=== PATIENT | female | born 1990 | race Caucasian/White ===

== ENCOUNTER 2019-07-01 13:45 | Outpatient (RCR) | payer OTHER, MEDICAID, SELFPAY ==
--- NOTE | 2019-04-22 12:54 | PT.OPPOC ---
Addendum entered and electronically signed by Racquel Hernandez PT 01/19/20 10:25: POC being resent Original Note: Current Diagnoses Carpal tunnel syndrome, bilateral upper limbs (04/22/19) Abnormal posture (04/22/19) Provider Visit Care Team Role Provider Type Zee Parker DO Attending Provider Physician Primary Care Provider Specialty: [facility] Address: [address] [place] [address], [facility] Email: [email or web address] Plan Of Care PT-OP-T Assessment and Plan Start: 04/22/19 12:54 Freq: Status: Active Protocol: Document 04/22/19 12:54 ANTWAN (Rec: 04/27/19 16:34 SAK [id number]) Physical Therapy Assessment Rehab Potential Rehabilitation Potential Good Evaluation Complexity Number of Personal Factors/Comorbidities 1-2 Number of Body Systems Impaired 3 Clinical Presentation at Evaluation Evolving Impairments Impairments Activity Tolerance Pain Posture ROM Soft Tissue Mobility Strength Other Concerns Barriers to Rehabilitation repetitive activities required by work Goals 3 Impairment activity tolerance Post Closing Specialist Goal (LTG) Patient will be able to complete all usual activities without symptoms in wrists LTG Duration 8 wks 2 Impairment Decreased ROM and strength bilateral wrists, postural impairment Short Term Goal (STG) Instruct in HEP STG Duration 2 wks Post Closing Specialist Goal (LTG) Patient independent and compliant with HEP to address ROM and strength deficits and postural dysfunction LTG Duration 8 wks 1 Impairment pain, numbness, and tingling bilateral wrists Short Term Goal (STG) Decrease symptoms by 50% STG Duration 4 wks Assisted Goal (LTG) Eliminate symptoms LTG Duration 8 wks Assessment Summary Assessment Patient presents with signs and symptoms consistent with carpal tunnel syndrome in bilateral wrists. She has not used ice or heat or obtained splints as recommended by her physician. She will benefit from skilled PT to treat the carpal tunnel and help her return to her usual activities without symptoms. This will include the use of splints which she has agreed to obtain as well as modalities, therapeutic exercises, patient education, manual therapy. Physical Therapy Plan Frequency and Duration Frequency of Treatment 2x/Week Duration of Treatment 8 Plan of Care Start Date 04/22/19 Plan of Care End Date 06/23/19 Therapeutic Interventions Therapeutic Interventions Home Exercise Program Manual Therapy Patient/Caregiver Education Self-Care/Home Management Soft Tissue Mobilization Taping Therapeutic Exercises Modalities Cold Pack/Ice Massage Hot Packs Paraffin Bath Ultrasound Next Visit Focus/Plan Next Note Type Treatment Note Next Visit Plan Start session with paraffin. Review HEP, manual treatment to forearm flexors, nerve gliding and flossing, consider kinesiotape. End with ice. Plan of Care Dates Plan of Care Start Date 04/22/19 Plan of Care End Date 06/23/19 Please Sign and Return: I have reviewed this Plan of Care and certify that the skilled therapy services above are required to meet the patient?s needs. Physician Signature Date Printed Name and Credentials Clinical Instructor Signature Printed Name and Credentials
--- NOTE | 2019-04-22 12:54 | PT.OIE ---
Current Diagnoses Carpal tunnel syndrome, bilateral upper limbs (04/22/19) Abnormal posture (04/22/19) Provider Visit Care Team Role Provider Type Zee Parker DO Attending Provider Physician Primary Care Provider Specialty: [facility] Address: [address] [place] [address], [id number] Email: [email or web address] Physical Therapy Initial Evaluation PT-OP-A Visit Information Start: 04/22/19 12:54 Freq: Status: Active Protocol: Document 04/22/19 12:54 SAK (Rec: 04/22/19 13:51 SAK [id number]) Out-Patient Physical Therapy Visit Information Visit Information Visit Type Initial Evaluation Visit Start Time 13:00 Visit Number 1 Evaluation Information Evaluation Date 04/22/19 PT-OP-B Current Condition Start: 04/22/19 12:54 Freq: Status: Active Protocol: Document 04/22/19 12:54 SAK (Rec: 04/22/19 13:51 SAK [id number]) Current Condition History of Current Condition Onset Date 3-4 yrs ago Current Complaints function-limiting pain, numbness, and tingling bilateral wrists. History of Current Condition gradual onset of numbness and tingling with repetitive use of hands, and wakes up about 50% of the time with hand numbness (sleeps in position with hands and wrists flexed). 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 Slight motor deficits ( weakness), mostly sensory symptoms with numbness and tingling. Has modified her activity, stopping an activity when she feels symptoms. Has not used ice or heat. Has not obtained splints as recommended. Prior Treatments and Tests EMG 6 wks ago; surgery recommended but patient declined at time at least until establishes care with physician. Treatment Goals Patient/Caregiver Goals Eliminate symptoms and return to usual activities without restriction. Prior Functional Status Baseline Function- ADL's Independent Baseline Function- Mobility Independent Baseline Function- Work/School limited by symptoms Baseline Function- Recreation/Hobbies limited by symptoms Baseline Function- Other unlimited activity with no symptoms Current Functional Impairments (Reported) Functional Limitations- ADL's frequent numbness and tingling Functional Limitations- Work/School Has to frequently stop activity when feels symptoms Functional Limitations- Recreation/ Has to frequently stop Hobbies activity when feels symptoms Personal Factors Other Personal Factors That May Effect sleeping in position, Therapy/Recovery wrists and hands flexed PT-OP-C Subjective Start: 04/22/19 12:54 Freq: Status: Active Protocol: Document 04/22/19 12:54 SAK (Rec: 04/23/19 08:45 SAK [id number]) Patient Questionnaires Quick Dash- Upper Extremity Quick Dash UE Score 22% OP-PT Pain Assessment Pain Assessment Grid Paper Pain Assessment Grid Completed Yes Location bilateral wrists Intensity 2 Description Aching Pressure Radiating Throbbing Tingling Frequency Frequent Pain Aggravating Factors Activity Pain Alleviating Factors Inactivity Home Pain Medication Use Pain Medications Used No PT-OP-F Manual Assessment Start: 04/22/19 12:54 Freq: Status: Active Protocol: Document 04/22/19 12:54 SAK (Rec: 04/23/19 08:45 SAK [id number]) Manual Assessments Soft Tissue Assessment Soft Tissue Mobility Assessment palpable muscle tightness in forearm flexor musculature Joint Mobility Assessment Joint Mobility Assessment WNL bilateral wrists PT-OP-H Neuro Start: 04/22/19 12:54 Freq: Status: Active Protocol: Document 04/22/19 12:54 SAK (Rec: 04/23/19 08:45 SAK [id number]) Sensation Evaluation Gross Sensation Gross Sensation Left UE Impaired Right UE Impaired Sensation Description Numbness Tingling Location Details Wrist Light Touch Intact/Normal Sharp/Dull Intact/Normal Proprioception (Position) Intact/Normal Tactile Localization Intact/Normal Comments Summary Comments Not experiencing N/T at time of evaluation PT-OP-J Posture/Palpation/Skin Start: 04/22/19 12:54 Freq: Status: Active Protocol: Document 04/22/19 12:54 SAK (Rec: 04/23/19 08:45 SAK [id number]) Posture Evaluation Position Standing Head/C-Spine Posture Forward Head T-Spine Posture Increased Kyphosis Shoulder Posture (L) Rounded (R) Rounded Scapula Posture (L) Protracted (R) Protracted Arm Posture (L) Internally Rotated (R) Internally Rotated Palpation Assessment Location colette forearms Palpation Findings Soft Tissue Tightness PT-OP-K Range of Motion Start: 04/22/19 12:54 Freq: Status: Active Protocol: Document 04/22/19 12:54 [facility] (Rec: 04/23/19 08:45 [facility] [id number]) Cervical Spine Range of Motion Cervical Spine Active Testing Position Sitting Comments WNL colette Shoulder Goniometric Range of Motion Shoulder colette shoulders Shoulder ROM WFL Yes Testing Position Sitting Shoulder ROM Limitations Comments WNL except limitations in horizontal abduction with patient reporting muscle tightness and nerve tension symptoms Elbow/Forearm Range of Motion Elbow/Forearm colette Elbow/Forearm ROM WFL Yes Elbow/Forearm ROM Limitations Comments WNL Wrist Goniometric Range of Motion Wrist Left Flexion Active (degrees) 90 Extension Active (degrees) 60 Extension Passive (degrees) 65 Right Flexion Active (degrees) 85 Extension Active (degrees) 65 Extension Passive (degrees) 70 ROM Limitations Wrist Limitations of Range of Motion Soft Tissue Tightness Pain Finger Goniometric Range of Motion Finger ROM Limitations Comments finger ROM WNL Thumb Goniometric Range of Motion Thumb ROM Limitations Comments thumb ROM WNL PT-OP-L Special Tests Start: 04/22/19 12:54 Freq: Status: Active Protocol: Document 04/22/19 12:54 [facility] (Rec: 04/23/19 08:45 [facility] [id number]) Special Tests Cervical Spine Special Tests Foraminal Compression Test Results negative colette Neural Special Tests- Upper Body Median Nerve Tension Test Results positive nerve tension signs bilaterally PT-OP-M Strength Start: 04/22/19 12:54 Freq: Status: Active Protocol: Document 04/22/19 12:54 [facility] (Rec: 04/23/19 08:45 [facility] [id number]) Shoulder Strength Shoulder Manual Muscle Testing colette Reason Not Measured WFL Elbow/Forearm Strength Elbow and Forearm Manual Muscle Testing colette Reason Not Measured WFL Wrist Strength Wrist Manual Muscle Testing colette Flexion (C7) 4 Good Extension (C6) 4 Good PT-OP-Q Treatments Start: 04/22/19 12:54 Freq: Status: Active Protocol: Document 04/22/19 12:54 [facility] (Rec: 04/27/19 16:34 [facility] [id number]) Self-Care/Home Management Treatment Education Patient Education Home Exercise Program Pain Management Other Education Issued written instructions Instructed to obtain wrist splints as recommended by physician Instructed in use of ice at home PT-OP-R Modalities Start: 04/22/19 12:54 Freq: Status: Active Protocol: Document 04/22/19 12:54 ANTWAN (Rec: 04/27/19 16:34 [facility] [id number]) Hot Pack/Cold Pack Treatment Cold Pack Location bilateral wrists Patient Position Sitting Treatment Duration (minutes) 10 Patient Tolerance Good PT-OP-T Assessment and Plan Start: 04/22/19 12:54 Freq: Status: Active Protocol: Document 04/22/19 12:54 ANTWAN (Rec: 04/27/19 16:34 [facility] [id number]) Physical Therapy Assessment Rehab Potential Rehabilitation Potential Good Evaluation Complexity Number of Personal Factors/Comorbidities 1-2 Number of Body Systems Impaired 3 Clinical Presentation at Evaluation Evolving Impairments Impairments Activity Tolerance Pain Posture ROM Soft Tissue Mobility Strength Other Concerns Barriers to Rehabilitation repetitive activities required by work Goals 3 Impairment activity tolerance Data Consultant Goal (LTG) Patient will be able to complete all usual activities without symptoms in wrists LTG Duration 8 wks 2 Impairment Decreased ROM and strength bilateral wrists, postural impairment Short Term Goal (STG) Instruct in HEP STG Duration 2 wks Half-Way Goal (LTG) Patient independent and compliant with HEP to address ROM and strength deficits and postural dysfunction LTG Duration 8 wks 1 Impairment pain, numbness, and tingling bilateral wrists Short Term Goal (STG) Decrease symptoms by 50% STG Duration 4 wks Data Consultant Goal (LTG) Eliminate symptoms LTG Duration 8 wks Assessment Summary Assessment Patient presents with signs and symptoms consistent with carpal tunnel syndrome in bilateral wrists. She has not used ice or heat or obtained splints as recommended by her physician. She will benefit from skilled PT to treat the carpal tunnel and help her return to her usual activities without symptoms. This will include the use of splints which she has agreed to obtain as well as modalities, therapeutic exercises, patient education, manual therapy. Physical Therapy Plan Frequency and Duration Frequency of Treatment 2x/Week Duration of Treatment 8 Plan of Care Start Date 04/22/19 Plan of Care End Date 06/23/19 Therapeutic Interventions Therapeutic Interventions Home Exercise Program Manual Therapy Patient/Caregiver Education Self-Care/Home Management Soft Tissue Mobilization Taping Therapeutic Exercises Modalities Cold Pack/Ice Massage Hot Packs Paraffin Bath Ultrasound Next Visit Focus/Plan Next Note Type Treatment Note Next Visit Plan Start session with paraffin. Review HEP, manual treatment to forearm flexors, nerve gliding and flossing, consider kinesiotape. End with ice.
--- NOTE | 2019-05-20 15:06 | PT.OTN ---
Current Diagnoses Carpal tunnel syndrome, bilateral upper limbs (05/20/19) Abnormal posture (05/20/19) Physical Therapy Treatment Note PT-OP-A Visit Information Start: 04/22/19 12:54 Freq: Status: Active Protocol: Document 05/20/19 11:15 GGD (Rec: 05/20/19 13:54 GGD [id number]) Out-Patient Physical Therapy Visit Information Visit Information Visit Type Treatment Note Visit Start Time 11:15 Visit Stop Time 12:05 Total Visit Minutes 50 Visit Number 2 Number of HOME APPLIANCE TECHNICIAN Visits 1 Evaluation Information Evaluation Date 04/22/19 PT-OP-B Current Condition Start: 04/22/19 12:54 Freq: Status: Active Protocol: Document 04/22/19 12:54 SAK (Rec: 04/22/19 13:51 SAK [id number]) Current Condition History of Current Condition Onset Date 3-4 yrs ago Current Complaints function-limiting pain, numbness, and tingling bilateral wrists. History of Current Condition gradual onset of numbness and tingling with repetitive use of hands, and wakes up about 50% of the time with hand numbness (sleeps in position with hands and wrists flexed). 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 Slight motor deficits ( weakness), mostly sensory symptoms with numbness and tingling. Has modified her activity, stopping an activity when she feels symptoms. Has not used ice or heat. Has not obtained splints as recommended. Prior Treatments and Tests EMG 6 wks ago; surgery recommended but patient declined at time at least until establishes care with physician. Treatment Goals Patient/Caregiver Goals Eliminate symptoms and return to usual activities without restriction. Prior Functional Status Baseline Function- ADL's Independent Baseline Function- Mobility Independent Baseline Function- Work/School limited by symptoms Baseline Function- Recreation/Hobbies limited by symptoms Baseline Function- Other unlimited activity with no symptoms Current Functional Impairments (Reported) Functional Limitations- ADL's frequent numbness and tingling Functional Limitations- Work/School Has to frequently stop activity when feels symptoms Functional Limitations- Recreation/ Has to frequently stop Hobbies activity when feels symptoms Personal Factors Other Personal Factors That May Effect sleeping in position, Therapy/Recovery wrists and hands flexed PT-OP-C Subjective Start: 04/22/19 12:54 Freq: Status: Active Protocol: Document 05/20/19 11:15 GGD (Rec: 05/20/19 13:54 GGD [id number]) OP-PT Subjective Patient Comments Patient Comments Pt states she has started to wear wrist braces and having decrease in numbness. PT-OP-F Manual Assessment Start: 04/22/19 12:54 Freq: Status: Active Protocol: Document 04/22/19 12:54 SAK (Rec: 04/23/19 08:45 SAK [id number]) Manual Assessments Soft Tissue Assessment Soft Tissue Mobility Assessment palpable muscle tightness in forearm flexor musculature Joint Mobility Assessment Joint Mobility Assessment WNL bilateral wrists PT-OP-H Neuro Start: 04/22/19 12:54 Freq: Status: Active Protocol: Document 04/22/19 12:54 SAK (Rec: 04/23/19 08:45 SAK [id number]) Sensation Evaluation Gross Sensation Gross Sensation Left UE Impaired Right UE Impaired Sensation Description Numbness Tingling Location Details Wrist Light Touch Intact/Normal Sharp/Dull Intact/Normal Proprioception (Position) Intact/Normal Tactile Localization Intact/Normal Comments Summary Comments Not experiencing N/T at time of evaluation PT-OP-J Posture/Palpation/Skin Start: 04/22/19 12:54 Freq: Status: Active Protocol: Document 04/22/19 12:54 SAK (Rec: 04/23/19 08:45 SAK [id number]) Posture Evaluation Position Standing Head/C-Spine Posture Forward Head T-Spine Posture Increased Kyphosis Shoulder Posture (L) Rounded (R) Rounded Scapula Posture (L) Protracted (R) Protracted Arm Posture (L) Internally Rotated (R) Internally Rotated Palpation Assessment Location colette forearms Palpation Findings Soft Tissue Tightness PT-OP-K Range of Motion Start: 04/22/19 12:54 Freq: Status: Active Protocol: Document 04/22/19 12:54 SAK (Rec: 04/23/19 08:45 SAK [id number]) Cervical Spine Range of Motion Cervical Spine Active Testing Position Sitting Comments WNL colette Shoulder Goniometric Range of Motion Shoulder colette shoulders Shoulder ROM WFL Yes Testing Position Sitting Shoulder ROM Limitations Comments WNL except limitations in horizontal abduction with patient reporting muscle tightness and nerve tension symptoms Elbow/Forearm Range of Motion Elbow/Forearm colette Elbow/Forearm ROM WFL Yes Elbow/Forearm ROM Limitations Comments WNL Wrist Goniometric Range of Motion Wrist Left Flexion Active (degrees) 90 Extension Active (degrees) 60 Extension Passive (degrees) 65 Right Flexion Active (degrees) 85 Extension Active (degrees) 65 Extension Passive (degrees) 70 ROM Limitations Wrist Limitations of Range of Motion Soft Tissue Tightness Pain Finger Goniometric Range of Motion Finger ROM Limitations Comments finger ROM WNL Thumb Goniometric Range of Motion Thumb ROM Limitations Comments thumb ROM WNL PT-OP-L Special Tests Start: 04/22/19 12:54 Freq: Status: Active Protocol: Document 04/22/19 12:54 SAK (Rec: 04/23/19 08:45 SAK [id number]) Special Tests Cervical Spine Special Tests Foraminal Compression Test Results negative colette Neural Special Tests- Upper Body Median Nerve Tension Test Results positive nerve tension signs bilaterally PT-OP-M Strength Start: 04/22/19 12:54 Freq: Status: Active Protocol: Document 04/22/19 12:54 SAK (Rec: 04/23/19 08:45 SAK [id number]) Shoulder Strength Shoulder Manual Muscle Testing colette Reason Not Measured WFL Elbow/Forearm Strength Elbow and Forearm Manual Muscle Testing colette Reason Not Measured WFL Wrist Strength Wrist Manual Muscle Testing colette Flexion (C7) 4 Good Extension (C6) 4 Good PT-OP-Q Treatments Start: 04/22/19 12:54 Freq: Status: Active Protocol: Document 05/20/19 11:15 GGD (Rec: 05/20/19 13:54 GGD [id number]) Manual Therapy Treatment Soft Tissue Mobilization STMA to forearm flexors and plamer surface Mobilization Type Myofascial Release Sustained Pressure Intensity/Depth Moderate Body Position Sitting Nerve Glides median nerve glide Details right > left Body Position Supine Reps/Duration 10 PT-OP-R Modalities Start: 04/22/19 12:54 Freq: Status: Active Protocol: Document 05/20/19 11:15 GGD (Rec: 05/20/19 13:54 GGD [id number]) Hot Pack/Cold Pack Treatment Cold Pack Location bilateral wrists Patient Position Sitting Treatment Duration (minutes) 10 Patient Tolerance Good Paraffin Bath Treatment Left Hand Treatment Technique Dip-immersion Number Wax Layers (layers) 5 Duration (minutes) 5 Patient Tolerance Good Ultrasound Therapy Treatment right hand Treatment Duration (minutes) 8 Patient Position Sitting Coupling Medium Ultrasound Gel Applicator Size (cm2) 5 Frequency Setting (mHz) 3 Mode Setting Pulsed Duty Cycle 50 Intensity Setting (w/cm2) 1.1 PT-OP-T Assessment and Plan Start: 04/22/19 12:54 Freq: Status: Active Protocol: Document 05/20/19 11:15 GGD (Rec: 05/20/19 15:06 GGD [id number]) Physical Therapy Assessment Assessment Summary Assessment Pt improving with decrease in symptom. She had increase in numbness it right UE with median nerve glide. She had decrease in pain with treatment. Physical Therapy Plan Frequency and Duration Frequency of Treatment 2x/Week Duration of Treatment 8 Plan of Care Start Date 04/22/19 Plan of Care End Date 06/23/19 Next Visit Focus/Plan Next Note Type Treatment Note Next Visit Plan Progress HEP and review nerve glides.
--- NOTE | 2019-05-27 16:49 | PT.OTN ---
Current Diagnoses Carpal tunnel syndrome, bilateral upper limbs (05/27/19) Abnormal posture (05/27/19) Physical Therapy Treatment Note PT-OP-A Visit Information Start: 04/22/19 12:54 Freq: Status: Active Protocol: Document 05/27/19 16:41 SAK (Rec: 05/27/19 16:48 SAK [id number]) Out-Patient Physical Therapy Visit Information Visit Information Visit Type Treatment Note Visit Start Time 11:15 Visit Stop Time 12:05 Total Visit Minutes 58 Visit Number 3 Number of SHEET ROCK SANDER Visits 1 PT-OP-B Current Condition Start: 04/22/19 12:54 Freq: Status: Active Protocol: Document 04/22/19 12:54 SAK (Rec: 04/22/19 13:51 SAK [id number]) Current Condition History of Current Condition Onset Date 3-4 yrs ago Current Complaints function-limiting pain, numbness, and tingling bilateral wrists. History of Current Condition gradual onset of numbness and tingling with repetitive use of hands, and wakes up about 50% of the time with hand numbness (sleeps in position with hands and wrists flexed). 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 Slight motor deficits ( weakness), mostly sensory symptoms with numbness and tingling. Has modified her activity, stopping an activity when she feels symptoms. Has not used ice or heat. Has not obtained splints as recommended. Prior Treatments and Tests EMG 6 wks ago; surgery recommended but patient declined at time at least until establishes care with physician. Treatment Goals Patient/Caregiver Goals Eliminate symptoms and return to usual activities without restriction. Prior Functional Status Baseline Function- ADL's Independent Baseline Function- Mobility Independent Baseline Function- Work/School limited by symptoms Baseline Function- Recreation/Hobbies limited by symptoms Baseline Function- Other unlimited activity with no symptoms Current Functional Impairments (Reported) Functional Limitations- ADL's frequent numbness and tingling Functional Limitations- Work/School Has to frequently stop activity when feels symptoms Functional Limitations- Recreation/ Has to frequently stop Hobbies activity when feels symptoms Personal Factors Other Personal Factors That May Effect sleeping in position, Therapy/Recovery wrists and hands flexed PT-OP-C Subjective Start: 04/22/19 12:54 Freq: Status: Active Protocol: Document 05/27/19 16:41 SAK (Rec: 05/27/19 16:48 SAK [id number]) OP-PT Subjective Patient Comments Patient Comments Pain decreased, doing stretching, wearing braces. Icing, especially after playing music. PT-OP-F Manual Assessment Start: 04/22/19 12:54 Freq: Status: Active Protocol: Document 04/22/19 12:54 SAK (Rec: 04/23/19 08:45 SAK [id number]) Manual Assessments Soft Tissue Assessment Soft Tissue Mobility Assessment palpable muscle tightness in forearm flexor musculature Joint Mobility Assessment Joint Mobility Assessment WNL bilateral wrists PT-OP-H Neuro Start: 04/22/19 12:54 Freq: Status: Active Protocol: Document 04/22/19 12:54 SAK (Rec: 04/23/19 08:45 SAK [id number]) Sensation Evaluation Gross Sensation Gross Sensation Left UE Impaired Right UE Impaired Sensation Description Numbness Tingling Location Details Wrist Light Touch Intact/Normal Sharp/Dull Intact/Normal Proprioception (Position) Intact/Normal Tactile Localization Intact/Normal Comments Summary Comments Not experiencing N/T at time of evaluation PT-OP-J Posture/Palpation/Skin Start: 04/22/19 12:54 Freq: Status: Active Protocol: Document 04/22/19 12:54 SAK (Rec: 04/23/19 08:45 SAK [id number]) Posture Evaluation Position Standing Head/C-Spine Posture Forward Head T-Spine Posture Increased Kyphosis Shoulder Posture (L) Rounded (R) Rounded Scapula Posture (L) Protracted (R) Protracted Arm Posture (L) Internally Rotated (R) Internally Rotated Palpation Assessment Location colette forearms Palpation Findings Soft Tissue Tightness PT-OP-K Range of Motion Start: 04/22/19 12:54 Freq: Status: Active Protocol: Document 04/22/19 12:54 SAK (Rec: 04/23/19 08:45 SAK [id number]) Cervical Spine Range of Motion Cervical Spine Active Testing Position Sitting Comments WNL colette Shoulder Goniometric Range of Motion Shoulder colette shoulders Shoulder ROM WFL Yes Testing Position Sitting Shoulder ROM Limitations Comments WNL except limitations in horizontal abduction with patient reporting muscle tightness and nerve tension symptoms Elbow/Forearm Range of Motion Elbow/Forearm colette Elbow/Forearm ROM WFL Yes Elbow/Forearm ROM Limitations Comments WNL Wrist Goniometric Range of Motion Wrist Left Flexion Active (degrees) 90 Extension Active (degrees) 60 Extension Passive (degrees) 65 Right Flexion Active (degrees) 85 Extension Active (degrees) 65 Extension Passive (degrees) 70 ROM Limitations Wrist Limitations of Range of Motion Soft Tissue Tightness Pain Finger Goniometric Range of Motion Finger ROM Limitations Comments finger ROM WNL Thumb Goniometric Range of Motion Thumb ROM Limitations Comments thumb ROM WNL PT-OP-L Special Tests Start: 04/22/19 12:54 Freq: Status: Active Protocol: Document 04/22/19 12:54 SAK (Rec: 04/23/19 08:45 [facility] [id number]) Special Tests Cervical Spine Special Tests Foraminal Compression Test Results negative colette Neural Special Tests- Upper Body Median Nerve Tension Test Results positive nerve tension signs bilaterally PT-OP-M Strength Start: 04/22/19 12:54 Freq: Status: Active Protocol: Document 04/22/19 12:54 SAK (Rec: 04/23/19 08:45 [facility] [id number]) Shoulder Strength Shoulder Manual Muscle Testing colette Reason Not Measured WFL Elbow/Forearm Strength Elbow and Forearm Manual Muscle Testing colette Reason Not Measured WFL Wrist Strength Wrist Manual Muscle Testing colette Flexion (C7) 4 Good Extension (C6) 4 Good PT-OP-Q Treatments Start: 04/22/19 12:54 Freq: Status: Active Protocol: Document 05/27/19 16:41 SAK (Rec: 05/27/19 16:48 [facility] [id number]) Therapeutic Exercises Sitting Exercises isometric wrist extension Reps/Minutes 10x active wrist extension Reps/Minutes 10x forearm flexor stretch Reps/Minutes 2x Manual Therapy Treatment Soft Tissue Mobilization STMA to forearm flexors and plamer surface Mobilization Type Myofascial Release Sustained Pressure Intensity/Depth Moderate Body Position Sitting Nerve Glides median nerve glide Details right > left Body Position Supine Reps/Duration 10 PT-OP-R Modalities Start: 04/22/19 12:54 Freq: Status: Active Protocol: Document 05/27/19 16:41 SAK (Rec: 05/27/19 16:48 SAK [id number]) Hot Pack/Cold Pack Treatment Cold Pack Location bilateral wrists Patient Position Sitting Treatment Duration (minutes) 10 Patient Tolerance Good Paraffin Bath Treatment Right Hand Treatment Technique Dip-immersion Number Wax Layers (layers) 5 Duration (minutes) 15 Patient Tolerance Good Left Hand Treatment Technique Dip-immersion Number Wax Layers (layers) 5 Duration (minutes) 15 Patient Tolerance Good Comment Treatment Comment same time Ultrasound Therapy Treatment right hand Treatment Duration (minutes) 8 Patient Position Sitting Coupling Medium Ultrasound Gel Applicator Size (cm2) 5 Frequency Setting (mHz) 3 Mode Setting Pulsed Duty Cycle 50 Intensity Setting (w/cm2) 1.1 PT-OP-T Assessment and Plan Start: 04/22/19 12:54 Freq: Status: Active Protocol: Document 05/27/19 16:41 [facility] (Rec: 05/27/19 16:48 [facility] [id number]) Physical Therapy Assessment Assessment Summary Assessment Progressing well with treatment. Decreased pain. Compliant to wearing braces at night. Physical Therapy Plan Frequency and Duration Frequency of Treatment 2x/Week Duration of Treatment 8 Plan of Care Start Date 04/22/19 Plan of Care End Date 06/23/19 Next Visit Focus/Plan Next Note Type Treatment Note Next Visit Plan Continue PT per POC
--- NOTE | 2019-06-10 11:31 | PT.OTN ---
Current Diagnoses Carpal tunnel syndrome, bilateral upper limbs (06/10/19) Abnormal posture (06/10/19) Physical Therapy Treatment Note PT-OP-A Visit Information Start: 04/22/19 12:54 Freq: Status: Active Protocol: Document 06/10/19 10:33 SAK (Rec: 06/10/19 11:20 SAK [id number]) Out-Patient Physical Therapy Visit Information Visit Information Visit Type Treatment Note Visit Start Time 10:32 Visit Stop Time 11:15 Total Visit Minutes 55 Visit Number 4 Number of ACQUISITIONS LOGISTICS ANALYST Visits 0 PT-OP-B Current Condition Start: 04/22/19 12:54 Freq: Status: Active Protocol: Document 04/22/19 12:54 SAK (Rec: 04/22/19 13:51 SAK [id number]) Current Condition History of Current Condition Onset Date 3-4 yrs ago Current Complaints function-limiting pain, numbness, and tingling bilateral wrists. History of Current Condition gradual onset of numbness and tingling with repetitive use of hands, and wakes up about 50% of the time with hand numbness (sleeps in position with hands and wrists flexed). 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 Slight motor deficits ( weakness), mostly sensory symptoms with numbness and tingling. Has modified her activity, stopping an activity when she feels symptoms. Has not used ice or heat. Has not obtained splints as recommended. Prior Treatments and Tests EMG 6 wks ago; surgery recommended but patient declined at time at least until establishes care with physician. Treatment Goals Patient/Caregiver Goals Eliminate symptoms and return to usual activities without restriction. Prior Functional Status Baseline Function- ADL's Independent Baseline Function- Mobility Independent Baseline Function- Work/School limited by symptoms Baseline Function- Recreation/Hobbies limited by symptoms Baseline Function- Other unlimited activity with no symptoms Current Functional Impairments (Reported) Functional Limitations- ADL's frequent numbness and tingling Functional Limitations- Work/School Has to frequently stop activity when feels symptoms Functional Limitations- Recreation/ Has to frequently stop Hobbies activity when feels symptoms Personal Factors Other Personal Factors That May Effect sleeping in position, Therapy/Recovery wrists and hands flexed PT-OP-C Subjective Start: 04/22/19 12:54 Freq: Status: Active Protocol: Document 06/10/19 10:33 SAK (Rec: 06/10/19 11:20 SAK [id number]) OP-PT Subjective Patient Comments Patient Comments About the same as last time, having some nerve spasms when playing guitar. Is wearing braces, no use of ice or heat. 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 PT-OP-F Manual Assessment Start: 04/22/19 12:54 Freq: Status: Active Protocol: Document 04/22/19 12:54 SAK (Rec: 04/23/19 08:45 SAK [id number]) Manual Assessments Soft Tissue Assessment Soft Tissue Mobility Assessment palpable muscle tightness in forearm flexor musculature Joint Mobility Assessment Joint Mobility Assessment WNL bilateral wrists PT-OP-H Neuro Start: 04/22/19 12:54 Freq: Status: Active Protocol: Document 04/22/19 12:54 SAK (Rec: 04/23/19 08:45 SAK [id number]) Sensation Evaluation Gross Sensation Gross Sensation Left UE Impaired Right UE Impaired Sensation Description Numbness Tingling Location Details Wrist Light Touch Intact/Normal Sharp/Dull Intact/Normal Proprioception (Position) Intact/Normal Tactile Localization Intact/Normal Comments Summary Comments Not experiencing N/T at time of evaluation PT-OP-J Posture/Palpation/Skin Start: 04/22/19 12:54 Freq: Status: Active Protocol: Document 04/22/19 12:54 SAK (Rec: 04/23/19 08:45 SAK [id number]) Posture Evaluation Position Standing Head/C-Spine Posture Forward Head T-Spine Posture Increased Kyphosis Shoulder Posture (L) Rounded (R) Rounded Scapula Posture (L) Protracted (R) Protracted Arm Posture (L) Internally Rotated (R) Internally Rotated Palpation Assessment Location colette forearms Palpation Findings Soft Tissue Tightness PT-OP-K Range of Motion Start: 04/22/19 12:54 Freq: Status: Active Protocol: Document 04/22/19 12:54 SAK (Rec: 04/23/19 08:45 SAK [id number]) Cervical Spine Range of Motion Cervical Spine Active Testing Position Sitting Comments WNL colette Shoulder Goniometric Range of Motion Shoulder colette shoulders Shoulder ROM WFL Yes Testing Position Sitting Shoulder ROM Limitations Comments WNL except limitations in horizontal abduction with patient reporting muscle tightness and nerve tension symptoms Elbow/Forearm Range of Motion Elbow/Forearm colette Elbow/Forearm ROM WFL Yes Elbow/Forearm ROM Limitations Comments WNL Wrist Goniometric Range of Motion Wrist Left Flexion Active (degrees) 90 Extension Active (degrees) 60 Extension Passive (degrees) 65 Right Flexion Active (degrees) 85 Extension Active (degrees) 65 Extension Passive (degrees) 70 ROM Limitations Wrist Limitations of Range of Motion Soft Tissue Tightness Pain Finger Goniometric Range of Motion Finger ROM Limitations Comments finger ROM WNL Thumb Goniometric Range of Motion Thumb ROM Limitations Comments thumb ROM WNL PT-OP-L Special Tests Start: 04/22/19 12:54 Freq: Status: Active Protocol: Document 04/22/19 12:54 SAK (Rec: 04/23/19 08:45 [facility] [id number]) Special Tests Cervical Spine Special Tests Foraminal Compression Test Results negative colette Neural Special Tests- Upper Body Median Nerve Tension Test Results positive nerve tension signs bilaterally PT-OP-M Strength Start: 04/22/19 12:54 Freq: Status: Active Protocol: Document 04/22/19 12:54 SAK (Rec: 04/23/19 08:45 [facility] [id number]) Shoulder Strength Shoulder Manual Muscle Testing colette Reason Not Measured WFL Elbow/Forearm Strength Elbow and Forearm Manual Muscle Testing colette Reason Not Measured WFL Wrist Strength Wrist Manual Muscle Testing colette Flexion (C7) 4 Good Extension (C6) 4 Good PT-OP-Q Treatments Start: 04/22/19 12:54 Freq: Status: Active Protocol: Document 06/10/19 10:33 SAK (Rec: 06/10/19 11:20 SAK [id number]) Therapeutic Exercises Supine Exercises nerve glides Reps/Minutes 5 min Comments numbness occurred left wrist supine T, I, Y stretches Equipment Used therapy ball Reps/Minutes 2x30 Manual Therapy Treatment Soft Tissue Mobilization STMA to forearm flexors and plamer surface Mobilization Type Myofascial Release Sustained Pressure Intensity/Depth Moderate Body Position Sitting Nerve Glides median nerve glide Details right > left Body Position Supine Reps/Duration 10 PT-OP-R Modalities Start: 04/22/19 12:54 Freq: Status: Active Protocol: Document 06/10/19 10:33 SAK (Rec: 06/10/19 11:20 SAK [id number]) Hot Pack/Cold Pack Treatment Cold Pack Location bilateral wrists Patient Position Sitting Treatment Duration (minutes) 10 Patient Tolerance Good Paraffin Bath Treatment Right Hand Treatment Technique Dip-immersion Number Wax Layers (layers) 5 Duration (minutes) 15 Patient Tolerance Good Left Hand Treatment Technique Dip-immersion Number Wax Layers (layers) 5 Duration (minutes) 15 Patient Tolerance Good Ultrasound Therapy Treatment right hand Treatment Duration (minutes) 8 Patient Position Sitting Coupling Medium Ultrasound Gel Applicator Size (cm2) 5 Frequency Setting (mHz) 3 Mode Setting Pulsed Duty Cycle 50 Intensity Setting (w/cm2) 1.1 PT-OP-T Assessment and Plan Start: 04/22/19 12:54 Freq: Status: Active Protocol: Document 06/10/19 10:33 SAK (Rec: 06/10/19 11:20 SAK [id number]) Physical Therapy Assessment Goals 3 Impairment activity tolerance Fdc Goal (LTG) Patient will be able to complete all usual activities without symptoms in wrists LTG Duration 8 wks 2 Impairment Decreased ROM and strength bilateral wrists, postural impairment Short Term Goal (STG) Instruct in HEP STG Duration 2 wks Fdc Goal (LTG) Patient independent and compliant with HEP to address ROM and strength deficits and postural dysfunction LTG Duration 8 wks 1 Impairment pain, numbness, and tingling bilateral wrists Short Term Goal (STG) Decrease symptoms by 50% STG Duration 4 wks Fdc Goal (LTG) Eliminate symptoms LTG Duration 8 wks Physical Therapy Plan Frequency and Duration Frequency of Treatment 2x/Week Duration of Treatment 8 Plan of Care Start Date 04/22/19 Plan of Care End Date 06/23/19 Therapeutic Interventions Therapeutic Interventions Home Exercise Program Manual Therapy Patient/Caregiver Education Self-Care/Home Management Soft Tissue Mobilization Taping Therapeutic Exercises Modalities Cold Pack/Ice Massage Hot Packs Paraffin Bath Ultrasound Next Visit Focus/Plan Next Note Type Treatment Note Next Visit Plan Continue PT with ther ex, manual therapy, modalities. Trial kinesiotape. Due to PT scheduling and patient starting new job, it is likely to be a few weeks before further PT, patient to continue with HEP and self management including use of ice and heat.
--- NOTE | 2019-07-01 17:35 | PT.OTN ---
Current Diagnoses Carpal tunnel syndrome, bilateral upper limbs (07/01/19) Abnormal posture (07/01/19) Physical Therapy Treatment Note PT-OP-A Visit Information Start: 04/22/19 12:54 Freq: Status: Active Protocol: Document 07/01/19 17:26 GGD (Rec: 07/01/19 17:35 GGD [id number]) Out-Patient Physical Therapy Visit Information Visit Information Visit Type Treatment Note Visit Start Time 13:45 Visit Stop Time 14:25 Total Visit Minutes 40 Visit Number 5 Number of RESIDENTIAL PROGRAM DIRECTOR Visits 1 PT-OP-B Current Condition Start: 04/22/19 12:54 Freq: Status: Active Protocol: Document 04/22/19 12:54 SAK (Rec: 04/22/19 13:51 SAK [id number]) Current Condition History of Current Condition Onset Date 3-4 yrs ago Current Complaints function-limiting pain, numbness, and tingling bilateral wrists. History of Current Condition gradual onset of numbness and tingling with repetitive use of hands, and wakes up about 50% of the time with hand numbness (sleeps in position with hands and wrists flexed). 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 Slight motor deficits ( weakness), mostly sensory symptoms with numbness and tingling. Has modified her activity, stopping an activity when she feels symptoms. Has not used ice or heat. Has not obtained splints as recommended. Prior Treatments and Tests EMG 6 wks ago; surgery recommended but patient declined at time at least until establishes care with physician. Treatment Goals Patient/Caregiver Goals Eliminate symptoms and return to usual activities without restriction. Prior Functional Status Baseline Function- ADL's Independent Baseline Function- Mobility Independent Baseline Function- Work/School limited by symptoms Baseline Function- Recreation/Hobbies limited by symptoms Baseline Function- Other unlimited activity with no symptoms Current Functional Impairments (Reported) Functional Limitations- ADL's frequent numbness and tingling Functional Limitations- Work/School Has to frequently stop activity when feels symptoms Functional Limitations- Recreation/ Has to frequently stop Hobbies activity when feels symptoms Personal Factors Other Personal Factors That May Effect sleeping in position, Therapy/Recovery wrists and hands flexed PT-OP-C Subjective Start: 04/22/19 12:54 Freq: Status: Active Protocol: Document 07/01/19 17:26 GGD (Rec: 07/01/19 17:35 GGD [id number]) OP-PT Subjective Patient Comments Patient Comments Pt states she feels about the same, doing HEP. She reports decrease in numbness by 15%. PT-OP-F Manual Assessment Start: 04/22/19 12:54 Freq: Status: Active Protocol: Document 04/22/19 12:54 SAK (Rec: 04/23/19 08:45 SAK [id number]) Manual Assessments Soft Tissue Assessment Soft Tissue Mobility Assessment palpable muscle tightness in forearm flexor musculature Joint Mobility Assessment Joint Mobility Assessment WNL bilateral wrists PT-OP-H Neuro Start: 04/22/19 12:54 Freq: Status: Active Protocol: Document 04/22/19 12:54 SAK (Rec: 04/23/19 08:45 SAK [id number]) Sensation Evaluation Gross Sensation Gross Sensation Left UE Impaired,Right UE Impaired Sensation Description Numbness,Tingling Location Details Wrist Light Touch Intact/Normal Sharp/Dull Intact/Normal Proprioception (Position) Intact/Normal Tactile Localization Intact/Normal Comments Summary Comments Not experiencing N/T at time of evaluation PT-OP-J Posture/Palpation/Skin Start: 04/22/19 12:54 Freq: Status: Active Protocol: Document 04/22/19 12:54 SAK (Rec: 04/23/19 08:45 SAK [id number]) Posture Evaluation Position Standing Head/C-Spine Posture Forward Head T-Spine Posture Increased Kyphosis Shoulder Posture (L) Rounded,(R) Rounded Scapula Posture (L) Protracted,(R) Protracted Arm Posture (L) Internally Rotated,(R) Internally Rotated Palpation Assessment Location colette forearms Palpation Findings Soft Tissue Tightness PT-OP-K Range of Motion Start: 04/22/19 12:54 Freq: Status: Active Protocol: Document 07/01/19 17:26 GGD (Rec: 07/01/19 17:35 GGD [id number]) Wrist Goniometric Range of Motion Wrist Left Flexion Active (degrees) 90 Extension Active (degrees) 70 Extension Passive (degrees) 75 Right Flexion Active (degrees) 90 Extension Active (degrees) 70 Extension Passive (degrees) 80 PT-OP-L Special Tests Start: 04/22/19 12:54 Freq: Status: Active Protocol: Document 04/22/19 12:54 SAK (Rec: 04/23/19 08:45 SAK [id number]) Special Tests Cervical Spine Special Tests Foraminal Compression Test Results negative colette Neural Special Tests- Upper Body Median Nerve Tension Test Results positive nerve tension signs bilaterally PT-OP-M Strength Start: 04/22/19 12:54 Freq: Status: Active Protocol: Document 07/01/19 17:26 GGD (Rec: 07/01/19 17:35 GGD [id number]) Wrist Strength Wrist Manual Muscle Testing colette Flexion (C7) 4+ Good+ Extension (C6) 5 Normal PT-OP-Q Treatments Start: 04/22/19 12:54 Freq: Status: Active Protocol: Document 07/01/19 17:26 GGD (Rec: 07/01/19 17:35 GGD [email or web address]) Therapeutic Exercises Supine Exercises nerve glides Reps/Minutes 5 min Comments numbness occurred left wrist Manual Therapy Treatment Soft Tissue Mobilization STMA to forearm flexors and plamer surface Mobilization Type Myofascial Release,Sustained Pressure Intensity/Depth Moderate Body Position Sitting Nerve Glides median nerve glide Details right > left Body Position Supine Reps/Duration 10 PT-OP-R Modalities Start: 04/22/19 12:54 Freq: Status: Active Protocol: Document 07/01/19 17:26 GGD (Rec: 07/01/19 17:35 GGD [id number]) Paraffin Bath Treatment Right Hand Treatment Technique Dip-immersion Number Wax Layers (layers) 5 Duration (minutes) 15 Patient Tolerance Good Ultrasound Therapy Treatment right hand Treatment Duration (minutes) 8 Patient Position Sitting Coupling Medium Ultrasound Gel Applicator Size (cm2) 5 Frequency Setting (mHz) 3 Mode Setting Pulsed Duty Cycle 50 Intensity Setting (w/cm2) 1.1 PT-OP-T Assessment and Plan Start: 04/22/19 12:54 Freq: Status: Active Protocol: Document 07/01/19 17:26 GGD (Rec: 07/01/19 17:35 GGD [id number]) Physical Therapy Assessment Goals 3 Impairment activity tolerance [facility]ci Goal (LTG) Patient will be able to complete all usual activities without symptoms in wrists 07/01/19: no change LTG Duration 8 wks 2 Impairment Decreased ROM and strength bilateral wrists, postural impairment Short Term Goal (STG) Instruct in HEP STG Duration 2 wks Silo E[employer]ctor Goal (LTG) Patient independent and compliant with HEP to address ROM and strength deficits and postural dysfunction LTG Duration 8 wks 1 Impairment pain, numbness, and tingling bilateral wrists Short Term Goal (STG) Decrease symptoms by 50% 07/01/19: decreased by 15% STG Duration 4 wks Fci Goal (LTG) Eliminate symptoms LTG Duration 8 wks Physical Therapy Plan Frequency and Duration Frequency of Treatment 2x/Week Duration of Treatment 8 Plan of Care Start Date 07/01/19 Plan of Care End Date 08/30/19 Next Visit Focus/Plan Next Note Type Treatment Note Next Visit Plan Continue PT with ther ex, manual therapy, modalities.
--- NOTE | 2019-07-02 19:49 | PT.OTRE ---
Current Diagnoses Carpal tunnel syndrome, bilateral upper limbs (07/01/19) Abnormal posture (07/01/19) Visit Care Team Role Provider Type Zee Parker DO Attending Provider Physician Primary Care Provider Specialty: [facility] Address: [address] [place] [address], [address], [address] Email: [email or web address] Physical Therapy Re-Evaluation PT-OP-A Visit Information Start: 04/22/19 12:54 Freq: Status: Active Protocol: Document 07/01/19 17:26 GGD (Rec: 07/01/19 17:35 GGD [email or web address]) Out-Patient Physical Therapy Visit Information Visit Information Visit Type Treatment Note Visit Start Time 13:45 Visit Stop Time 14:25 Total Visit Minutes 40 Visit Number 5 Number of LENS POLISHER Visits 1 PT-OP-B Current Condition Start: 04/22/19 12:54 Freq: Status: Active Protocol: Document 04/22/19 12:54 SAK (Rec: 04/22/19 13:51 SAK [id number]) Current Condition History of Current Condition Onset Date 3-4 yrs ago Current Complaints function-limiting pain, numbness, and tingling bilateral wrists. History of Current Condition gradual onset of numbness and tingling with repetitive use of hands, and wakes up about 50% of the time with hand numbness (sleeps in position with hands and wrists flexed). 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 Slight motor deficits ( weakness), mostly sensory symptoms with numbness and tingling. Has modified her activity, stopping an activity when she feels symptoms. Has not used ice or heat. Has not obtained splints as recommended. Prior Treatments and Tests EMG 6 wks ago; surgery recommended but patient declined at time at least until establishes care with physician. Treatment Goals Patient/Caregiver Goals Eliminate symptoms and return to usual activities without restriction. Prior Functional Status Baseline Function- ADL's Independent Baseline Function- Mobility Independent Baseline Function- Work/School limited by symptoms Baseline Function- Recreation/Hobbies limited by symptoms Baseline Function- Other unlimited activity with no symptoms Current Functional Impairments (Reported) Functional Limitations- ADL's frequent numbness and tingling Functional Limitations- Work/School Has to frequently stop activity when feels symptoms Functional Limitations- Recreation/ Has to frequently stop Hobbies activity when feels symptoms Personal Factors Other Personal Factors That May Effect sleeping in position, Therapy/Recovery wrists and hands flexed PT-OP-C Subjective Start: 04/22/19 12:54 Freq: Status: Active Protocol: Document 07/01/19 17:26 GGD (Rec: 07/01/19 17:35 GGD [email or web address]) OP-PT Subjective Patient Comments Patient Comments Pt states she feels about the same, doing HEP. She reports decrease in numbness by 15%. PT-OP-F Manual Assessment Start: 04/22/19 12:54 Freq: Status: Active Protocol: Document 04/22/19 12:54 SAK (Rec: 04/23/19 08:45 SAK [id number]) Manual Assessments Soft Tissue Assessment Soft Tissue Mobility Assessment palpable muscle tightness in forearm flexor musculature Joint Mobility Assessment Joint Mobility Assessment WNL bilateral wrists PT-OP-H Neuro Start: 04/22/19 12:54 Freq: Status: Active Protocol: Document 04/22/19 12:54 SAK (Rec: 04/23/19 08:45 SAK [id number]) Sensation Evaluation Gross Sensation Gross Sensation Left UE Impaired,Right UE Impaired Sensation Description Numbness,Tingling Location Details Wrist Light Touch Intact/Normal Sharp/Dull Intact/Normal Proprioception (Position) Intact/Normal Tactile Localization Intact/Normal Comments Summary Comments Not experiencing N/T at time of evaluation PT-OP-J Posture/Palpation/Skin Start: 04/22/19 12:54 Freq: Status: Active Protocol: Document 04/22/19 12:54 SAK (Rec: 04/23/19 08:45 SAK [id number]) Posture Evaluation Position Standing Head/C-Spine Posture Forward Head T-Spine Posture Increased Kyphosis Shoulder Posture (L) Rounded,(R) Rounded Scapula Posture (L) Protracted,(R) Protracted Arm Posture (L) Internally Rotated,(R) Internally Rotated Palpation Assessment Location colette forearms Palpation Findings Soft Tissue Tightness PT-OP-K Range of Motion Start: 04/22/19 12:54 Freq: Status: Active Protocol: Document 07/01/19 17:26 GGD (Rec: 07/01/19 17:35 GGD [email or web address]) Wrist Goniometric Range of Motion Wrist Measured in Degrees Left Flexion Active (degrees) 90 Extension Active (degrees) 70 Extension Passive (degrees) 75 Right Flexion Active (degrees) 90 Extension Active (degrees) 70 Extension Passive (degrees) 80 PT-OP-L Special Tests Start: 04/22/19 12:54 Freq: Status: Active Protocol: Document 04/22/19 12:54 SAK (Rec: 04/23/19 08:45 SAK [id number]) Special Tests Cervical Spine Special Tests Foraminal Compression Test Results negative colette Neural Special Tests- Upper Body Median Nerve Tension Test Results positive nerve tension signs bilaterally PT-OP-M Strength Start: 04/22/19 12:54 Freq: Status: Active Protocol: Document 07/01/19 17:26 GGD (Rec: 07/01/19 17:35 GGD [email or web address]) Wrist Strength Wrist Manual Muscle Testing colette Flexion (C7) 4+ Good+ Extension (C6) 5 Normal PT-OP-Q Treatments Start: 04/22/19 12:54 Freq: Status: Active Protocol: Document 07/01/19 17:26 GGD (Rec: 07/01/19 17:35 GGD [email or web address]) Therapeutic Exercises Supine Exercises nerve glides Reps/Minutes 5 min Comments numbness occurred left wrist Manual Therapy Treatment Soft Tissue Mobilization STMA to forearm flexors and plamer surface Mobilization Type Myofascial Release,Sustained Pressure Intensity/Depth Moderate Body Position Sitting Nerve Glides median nerve glide Details right > left Body Position Supine Reps/Duration 10 PT-OP-R Modalities Start: 04/22/19 12:54 Freq: Status: Active Protocol: Document 07/01/19 17:26 GGD (Rec: 07/01/19 17:35 GGD [email or web address]) Paraffin Bath Treatment Right Hand Treatment Technique Dip-immersion Number Wax Layers (layers) 5 Duration (minutes) 15 Patient Tolerance Good Ultrasound Therapy Treatment right hand Treatment Duration (minutes) 8 Patient Position Sitting Coupling Medium Ultrasound Gel Applicator Size (cm2) 5 Frequency Setting (mHz) 3 Mode Setting Pulsed Duty Cycle 50 Intensity Setting (w/cm2) 1.1 PT-OP-T Assessment and Plan Start: 04/22/19 12:54 Freq: Status: Active Protocol: Document 07/01/19 17:26 GGD (Rec: 07/01/19 17:35 GGD [email or web address]) Physical Therapy Assessment Goals 3 Impairment activity tolerance Snf Goal (LTG) Patient will be able to complete all usual activities without symptoms in wrists 07/01/19: no change LTG Duration 8 wks 2 Impairment Decreased ROM and strength bilateral wrists, postural impairment Short Term Goal (STG) Instruct in HEP STG Duration 2 wks Senior Manufacturing Technician Goal (LTG) Patient independent and compliant with HEP to address ROM and strength deficits and postural dysfunction LTG Duration 8 wks 1 Impairment pain, numbness, and tingling bilateral wrists Short Term Goal (STG) Decrease symptoms by 50% 07/01/19: decreased by 15% STG Duration 4 wks Senior Manufacturing Technician Goal (LTG) Eliminate symptoms LTG Duration 8 wks Physical Therapy Plan Frequency and Duration Frequency of Treatment 2x/Week Duration of Treatment 8 Plan of Care Start Date 07/01/19 Plan of Care End Date 08/30/19 Next Visit Focus/Plan Next Note Type Treatment Note Next Visit Plan Continue PT with ther ex, manual therapy, modalities.
--- NOTE | 2019-07-02 19:49 | PT.OPPOC ---
Current Diagnoses Carpal tunnel syndrome, bilateral upper limbs (07/01/19) Abnormal posture (07/01/19) Visit Care Team Role Provider Type Zee Parker DO Attending Provider Physician Primary Care Provider Specialty: [facility] Address: [address] [place] [address], [address], [address] Email: [email or web address] Plan Of Care PT-OP-T Assessment and Plan Start: 04/22/19 12:54 Freq: Status: Active Protocol: Document 07/01/19 17:26 GGD (Rec: 07/01/19 17:35 GGD [email or web address]) Physical Therapy Assessment Goals 3 Impairment activity tolerance Consultants Intern Goal (LTG) Patient will be able to complete all usual activities without symptoms in wrists 07/01/19: no change LTG Duration 8 wks 2 Impairment Decreased ROM and strength bilateral wrists, postural impairment Short Term Goal (STG) Instruct in HEP STG Duration 2 wks Half-Way Goal (LTG) Patient independent and compliant with HEP to address ROM and strength deficits and postural dysfunction LTG Duration 8 wks 1 Impairment pain, numbness, and tingling bilateral wrists Short Term Goal (STG) Decrease symptoms by 50% 07/01/19: decreased by 15% STG Duration 4 wks Consultants Intern Goal (LTG) Eliminate symptoms LTG Duration 8 wks Physical Therapy Plan Frequency and Duration Frequency of Treatment 2x/Week Duration of Treatment 8 Plan of Care Start Date 07/01/19 Plan of Care End Date 08/30/19 Next Visit Focus/Plan Next Note Type Treatment Note Next Visit Plan Continue PT with ther ex, manual therapy, modalities. Plan of Care Dates Plan of Care Start Date 07/01/19 Plan of Care End Date 08/30/19
--- NOTE | 2019-08-08 15:22 | PT.OPDS ---
Current Diagnoses Carpal tunnel syndrome, bilateral upper limbs (07/01/19) Abnormal posture (07/01/19) Visit Care Team Role Provider Type Zee Parker DO Attending Provider Physician Primary Care Provider Specialty: [facility] Address: [address] [place] [address], [address], [address] Email: [email or web address] Visit Number Visit Number 5 Discharge Summary PT-OP-B Current Condition Start: 04/22/19 12:54 Freq: Status: Active Protocol: Document 04/22/19 12:54 SAK (Rec: 04/22/19 13:51 SAK [id number]) Current Condition History of Current Condition Onset Date 3-4 yrs ago Current Complaints function-limiting pain, numbness, and tingling bilateral wrists. History of Current Condition gradual onset of numbness and tingling with repetitive use of hands, and wakes up about 50% of the time with hand numbness (sleeps in position with hands and wrists flexed). 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 Slight motor deficits ( weakness), mostly sensory symptoms with numbness and tingling. Has modified her activity, stopping an activity when she feels symptoms. Has not used ice or heat. Has not obtained splints as recommended. Prior Treatments and Tests EMG 6 wks ago; surgery recommended but patient declined at time at least until establishes care with physician. Treatment Goals Patient/Caregiver Goals Eliminate symptoms and return to usual activities without restriction. Prior Functional Status Baseline Function- ADL's Independent Baseline Function- Mobility Independent Baseline Function- Work/School limited by symptoms Baseline Function- Recreation/Hobbies limited by symptoms Baseline Function- Other unlimited activity with no symptoms Current Functional Impairments (Reported) Functional Limitations- ADL's frequent numbness and tingling Functional Limitations- Work/School Has to frequently stop activity when feels symptoms Functional Limitations- Recreation/ Has to frequently stop Hobbies activity when feels symptoms Personal Factors Other Personal Factors That May Effect sleeping in position, Therapy/Recovery wrists and hands flexed PT-OP-C Subjective Start: 04/22/19 12:54 Freq: Status: Active Protocol: Document 07/01/19 17:26 GGD (Rec: 07/01/19 17:35 GGD [email or web address]) OP-PT Subjective Patient Comments Patient Comments Pt states she feels about the same, doing HEP. She reports decrease in numbness by 15%. PT-OP-F Manual Assessment Start: 04/22/19 12:54 Freq: Status: Active Protocol: Document 04/22/19 12:54 SAK (Rec: 04/23/19 08:45 SAK [id number]) Manual Assessments Soft Tissue Assessment Soft Tissue Mobility Assessment palpable muscle tightness in forearm flexor musculature Joint Mobility Assessment Joint Mobility Assessment WNL bilateral wrists PT-OP-H Neuro Start: 04/22/19 12:54 Freq: Status: Active Protocol: Document 04/22/19 12:54 SAK (Rec: 04/23/19 08:45 SAK [id number]) Sensation Evaluation Gross Sensation Gross Sensation Left UE Impaired,Right UE Impaired Sensation Description Numbness,Tingling Location Details Wrist Light Touch Intact/Normal Sharp/Dull Intact/Normal Proprioception (Position) Intact/Normal Tactile Localization Intact/Normal Comments Summary Comments Not experiencing N/T at time of evaluation PT-OP-J Posture/Palpation/Skin Start: 04/22/19 12:54 Freq: Status: Active Protocol: Document 04/22/19 12:54 SAK (Rec: 04/23/19 08:45 SAK [id number]) Posture Evaluation Position Standing Head/C-Spine Posture Forward Head T-Spine Posture Increased Kyphosis Shoulder Posture (L) Rounded,(R) Rounded Scapula Posture (L) Protracted,(R) Protracted Arm Posture (L) Internally Rotated,(R) Internally Rotated Palpation Assessment Location colette forearms Palpation Findings Soft Tissue Tightness PT-OP-K Range of Motion Start: 04/22/19 12:54 Freq: Status: Active Protocol: Document 07/01/19 17:26 GGD (Rec: 07/01/19 17:35 GGD [email or web address]) Wrist Goniometric Range of Motion Wrist Left Flexion Active (degrees) 90 Extension Active (degrees) 70 Extension Passive (degrees) 75 Right Flexion Active (degrees) 90 Extension Active (degrees) 70 Extension Passive (degrees) 80 PT-OP-L Special Tests Start: 04/22/19 12:54 Freq: Status: Active Protocol: Document 04/22/19 12:54 SAK (Rec: 04/23/19 08:45 SAK [id number]) Special Tests Cervical Spine Special Tests Foraminal Compression Test Results negative colette Neural Special Tests- Upper Body Median Nerve Tension Test Results positive nerve tension signs bilaterally PT-OP-M Strength Start: 04/22/19 12:54 Freq: Status: Active Protocol: Document 07/01/19 17:26 GGD (Rec: 07/01/19 17:35 GGD [email or web address]) Wrist Strength Wrist Manual Muscle Testing colette Flexion (C7) 4+ Good+ Extension (C6) 5 Normal PT-OP-T Assessment and Plan Start: 04/22/19 12:54 Freq: Status: Active Protocol: Document 08/08/19 15:20 DCW (Rec: 08/08/19 15:21 DCW [id number]) Physical Therapy Assessment Goals 3 Impairment activity tolerance Tobacco Stripping 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 Operator Goal (LTG) Patient will be able to complete all usual activities without symptoms in wrists 07/01/19: no change LTG Duration 8 wks 2 Impairment Decreased ROM and strength bilateral wrists, postural impairment Short Term Goal (STG) Instruct in HEP STG Duration 2 wks Nursing Home Goal (LTG) Patient independent and compliant with HEP to address ROM and strength deficits and postural dysfunction LTG Duration 8 wks 1 Impairment pain, numbness, and tingling bilateral wrists Short Term Goal (STG) Decrease symptoms by 50% 07/01/19: decreased by 15% STG Duration 4 wks Tobacco Stripping Machine Operator Goal (LTG) Eliminate symptoms LTG Duration 8 wks Assessment Summary Assessment Pt canceled her scheduled visit today ~20 minutes prior to start of appointment, then requested canceling remaining visits, stating she is pursuing a different route for therapy. Pt will be discharged at this time. Physical Therapy Plan Discharge Physical Therapy Discharge Reasons Patient Request Next Visit Focus/Plan Next Note Type Discharge Summary
== END 2019-08-13 15:34 | disposition home or self-care (01) ==
LOC: PHYS 13:45
PROVIDERS: PCP Family Medicine; Visit Provider Family Medicine
DX: G56.03 Carpal tunnel syndrome, bilateral upper limbs (principal); R29.3 Abnormal posture
CPT/HCPCS: 97018; 97035; 97110; 97140; 97162; 97535

== ENCOUNTER → 2019-10-02 14:58 | Outpatient (CLI) | payer OTHER, SELFPAY ==
[2019-10-02 15:43] LABS: Influenza A - CEPHEID Flu A NEGATIVE (NEGATIVE); Influenza B - CEPHEID Flu B NEGATIVE (NEGATIVE)
== END ==
PROVIDERS: PCP Family Medicine; Visit Provider Family Medicine
DX: J11.1 Influenza due to unidentified influenza virus with other respiratory manifestations (principal)
CPT/HCPCS: 87502

== ENCOUNTER → 2019-11-06 10:00 | Outpatient (CLI) | payer OTHER, SELFPAY ==
[2019-11-06 10:43] LABS: Appearance Urine UA CLEAR; Bilirubin Urine UA NEGATIVE (NEGATIVE); Color Urine UA YELLOW; Glucose Urine UA NEGATIVE (Negative); Ketones Urine UA NEGATIVE (NEGATIVE); Leukocyte Esterase Urine UA NEGATIVE (NEGATIVE); Nitrite Urine UA NEGATIVE (Negative); Occult Blood Urine UA NEGATIVE (Negative); Protein Urine UA NEGATIVE (Negative); Specific Gravity Urine UA >=1.030 (1.000-1.035); Urobilinogen Urine UA 0.2 E.U./dL (0.2)
[2019-11-06 10:46] LABS: pH Urine UA 5.5 (4.5-8.0)
[2019-11-06 10:50] LABS: Add Manual Diff / Slide Review NO; Basophils Absolute Auto 0 /uL (0-100); Basophils Percent Auto 0.1 % (0-2); Eosinophils Absolute Auto 100 /uL (0-450); Eosinophils Percent Auto 1.1 % (2-4); Hematocrit 36.9 % (36-46); Hemoglobin 12.9 g/dL (12.0-16.0); Lymphocytes Absolute Auto 1200 /uL (1100-4500); Lymphocytes Percent Auto 14.1 % (25-40); Mean Corpuscular HGB Conc 34.9 % (30-36); Mean Corpuscular Hemoglobin 31.1 PG (26-34); Mean Corpuscular Volume 89.2 fL (80-100); Monocytes Absolute Auto 500 /uL (0-900); Monocytes Percent Auto 6.4 % (3-14); Neutrophils Absolute Auto 6500 /uL (1500-7000); Neutrophils Percent Auto 78.3 % (50-75); Platelet Count 230 X10^3/uL (150-400); Red Blood Cell Count 4.14 X10^6/uL (4.0-5.2); Red Cell Distribution Width 12.7 % (11.6-14.8); White Blood Cell Count 8.4 X10^3/uL (4.5-11.0)
[2019-11-06 11:46] LABS: Hepatitis B Surface Antigen NEGATIVE s/c (NEGATIVE); Rubella Antibody IgG 10.9 IU/mL (>15)
[2019-11-06 12:05] LABS: HIV 1 & 2 Ab/Ag 4th Gen Combo NEGATIVE (NEGATIVE); Hep C Virus Ab w/Reflex Quant NEGATIVE s/c (NEGATIVE)
[2019-11-07 22:23] LABS: RPR Screen Nonreactive (Nonreactive)
== END ==
PROVIDERS: PCP Student in an Organized Health Care Education/Training Program; Visit Provider Family Medicine
DX: Z34.91 Encounter for supervision of normal pregnancy, unspecified, first trimester (principal)
CPT/HCPCS: 36415; 80055; 81003; 86787; 86803; 86850; 86900; 86901; 87086; 87389

== ENCOUNTER → 2019-11-21 16:22 | Outpatient (CLI) | payer OTHER, SELFPAY ==
[2019-11-21 19:09] LABS: Prolactin 45.6 ng/mL (3.0-18.6)
== END ==
PROVIDERS: PCP Family Medicine; Referring Provider Family Medicine; Visit Provider Family Medicine
DX: D35.2 Benign neoplasm of pituitary gland (principal)
CPT/HCPCS: 36415; 84146

== ENCOUNTER → 2019-12-26 09:19 | Outpatient (CLI) | payer OTHER, MEDICAID, SELFPAY ==
--- NOTE | 2019-12-26 09:20 | DI.US.S_ITS ---
PROCEDURE: US OB >= 14 WEEKS FETUS INDICATIONS: ANATOMY SURVEY OUTSIDE/PRIOR DATING DATA: Last menstrual period (LMP): Unknown. LMP-based estimated date of delivery (SUSAN): Unknown. First dating scan (date and location): Outside study, not available. Estimated date of delivery (SUSAN) from first dating scan: Reportedly 05/18/20 however no outside comparison studies are available at the time of study interpretation. TECHNIQUE: Real-time scanning was performed of the fetus, with image documentation and biometric measurements. Endovaginal scanning: Not performed COMPARISON: None. FINDINGS: General: A single living intrauterine gestation is present. Presentation: Variable Placenta: Placental position is posterior, without previa. Amniotic fluid index: 15 cm, normal range is 5-24 cm. heart rate: 165 beats per minute. Maternal cervical canal: 5.9 cm long. Normal lower limit is 2.5 cm. biometrics: Biparietal diameter: 4.3 cm, 19 weeks zero days Head circumference: 16.1 cm, 18 weeks 6 days Abdominal circumference: 13.8 cm, 19 weeks one day Femur length: 3.1 cm, 19 weeks 5 days Estimated gestational age from initial scan: 19 weeks 3 days Composite gestational age from present scan: 19 weeks one day Estimated weight and percentile: 281 g, 40th percentile Measurement variability for biometric dating: +/- 7 days from 14 weeks to 15 weeks 6 days gestation, +/- 10 days from 16 weeks to 21 weeks 6 days gestation, +/- 2 weeks from 22 weeks to 27 weeks 6 days gestation, +/- 3 weeks for 28 weeks gestation or later. weight reference: 4500 g or EFW >90/95% is considered macrosomia or large for gestational age. EFW <10% is small for gestational age. EFW 5% or less is considered intra-uterine growth restriction. Anatomic survey: Neuro: Ventricles are non-dilated at less than 10 mm. Cisterna magna is normal at 3-11 mm. Cerebellum is normal in size and morphology. Nuchal skin fold: Normal at less than 6 mm between 14-21 weeks gestational age. Face: Nose and lips, facial profile are normal. Spine: No evidence for spina bifida. Heart: 4-chambered heart is present, with normal ventricular outflow tracts. Diaphragm: Diaphragm is intact. Stomach: Left-sided stomach is present. Kidneys: No hydronephrosis. Normal is less than 5 mm in 2nd trimester, less than 7 mm in 3rd trimester. Cord: 3-vessel cord has orthotopic insertion. Bladder: Normal in size. Extremities: All 4 extremities identified. IMPRESSION: Single living intrauterine fetus in variable presentation. Expected interval growth as above although outside comparison studies not available in PACS. Normal anatomic survey Dictated by: Hugo Carlos M.D. on 12/26/2019 at 12:16 Approved by: Hugo Carlos M.D. on 12/26/2019 at 12:23
== END ==
PROVIDERS: PCP Family Medicine; Referring Provider Family Medicine; Visit Provider Family Medicine
DX: Z34.92 Encounter for supervision of normal pregnancy, unspecified, second trimester (principal); Z3A.19 19 weeks gestation of pregnancy
CPT/HCPCS: 76811

== ENCOUNTER → 2020-01-29 15:40 | Outpatient (CLI) | payer OTHER, SELFPAY ==
[2020-01-29 17:26] LABS: Prolactin 90.1 ng/mL (3.0-18.6)
== END ==
PROVIDERS: PCP Family Medicine; Referring Provider Family Medicine; Visit Provider Family Medicine
DX: D35.2 Benign neoplasm of pituitary gland (principal)
CPT/HCPCS: 36415; 84146

== ENCOUNTER → 2020-02-26 10:02 | Outpatient (CLI) | payer OTHER, SELFPAY ==
[2020-02-26 11:30] LABS: Add Manual Diff / Slide Review NO; Basophils Absolute Auto 0 /uL (0-100); Basophils Percent Auto 0.1 % (0-2); Eosinophils Absolute Auto 100 /uL (0-450); Hematocrit 33.6 % (36-46); Hemoglobin 11.5 g/dL (12.0-16.0); Lymphocytes Absolute Auto 1300 /uL (1100-4500); Lymphocytes Percent Auto 14.7 % (25-40); Mean Corpuscular HGB Conc 34.2 % (30-36); Mean Corpuscular Hemoglobin 31.3 PG (26-34); Mean Corpuscular Volume 91.8 fL (80-100); Monocytes Absolute Auto 600 /uL (0-900); Monocytes Percent Auto 6.9 % (3-14); Neutrophils Absolute Auto 6600 /uL (1500-7000); Neutrophils Percent Auto 77.3 % (50-75); Platelet Count 191 X10^3/uL (150-400); Red Blood Cell Count 3.66 X10^6/uL (4.0-5.2); Red Cell Distribution Width 13.1 % (11.6-14.8); White Blood Cell Count 8.6 X10^3/uL (4.5-11.0)
[2020-02-26 12:11] LABS: GTT (PREG) 1 Hour PP 50gm Dose 134 mg/dL (76-139)
== END ==
PROVIDERS: PCP Family Medicine; Referring Provider Family Medicine; Visit Provider Family Medicine
DX: Z34.92 Encounter for supervision of normal pregnancy, unspecified, second trimester (principal); Z3A.24 24 weeks gestation of pregnancy
CPT/HCPCS: 36415; 82950; 85025

== ENCOUNTER → 2020-04-23 11:22 | Outpatient (CLI) | payer OTHER, MEDICAID, SELFPAY ==
[2020-04-24 07:54] LABS: Strep Grp B PCR NEG for Grp B Strep
== END ==
PROVIDERS: PCP Family Medicine; Visit Provider Family Medicine
DX: Z34.90 Encounter for supervision of normal pregnancy, unspecified, unspecified trimester (principal); Z3A.36 36 weeks gestation of pregnancy
CPT/HCPCS: 87653

== ENCOUNTER → 2020-05-22 09:35 | Outpatient (CLI) | payer OTHER, MEDICAID, SELFPAY ==
[2020-05-23 06:36] LABS: COVID19 Sendout Not Detected (Not Detect)
== END ==
PROVIDERS: PCP Family Medicine; Visit Provider Physician Assistant
DX: Z11.59 Encounter for screening for other viral diseases (principal)
CPT/HCPCS: 87635

== ENCOUNTER 2020-05-22 22:32 | Inpatient (IN) | payer OTHER, MEDICAID, SELFPAY ==
[2020-05-23] MEDS: miSOPROStoL 25 MCG TABLET 50 MCG PO (00:45)
[2020-05-23 01:16] LABS: Add Manual Diff / Slide Review NO; Basophils Absolute Auto 100 /uL (0-100); Basophils Percent Auto 0.4 % (0-2); Eosinophils Absolute Auto 0 /uL (0-450); Eosinophils Percent Auto 0.1 % (2-4); Hematocrit 35.9 % (36-46); Hemoglobin 11.9 g/dL (12.0-16.0); Lymphocytes Absolute Auto 1200 /uL (1100-4500); Lymphocytes Percent Auto 6.2 % (25-40); Mean Corpuscular Hemoglobin 29.2 PG (26-34); Mean Corpuscular Volume 88.4 fL (80-100); Monocytes Absolute Auto 1500 /uL (0-900); Monocytes Percent Auto 8.1 % (3-14); Neutrophils Absolute Auto 16000 /uL (1500-7000); Neutrophils Percent Auto 85.2 % (50-75); Platelet Count 207 X10^3/uL (150-400); Red Blood Cell Count 4.06 X10^6/uL (4.0-5.2); Red Cell Distribution Width 13.9 % (11.6-14.8); White Blood Cell Count 18.8 X10^3/uL (4.5-11.0)
[2020-05-23 03:53] VITALS: BP 118/70
--- NOTE | 2020-05-23 08:46 | PM.OBHP.1 ---
OB HPI Date/Time Date of admission: 05/22/20 Date Patient Seen: 05/23/20 Time Patient Seen: 08:30 History of Present Condition Chief complaint: EVAL OF LABOR : 1 Para: 0 Estimated Date of Delivery: 05/18/20 Estimated Gestational Age (weeks): 40 Narrative: Martina Motta is a 29 year old @40+5 presenting after SROM for copious clear fluid on 05/22 at 1300. The patient reports ongoing leakage of clear fluid, and wsa grossly ruptured on admission. The patient denies contractions, reports no vaginal bleeding, and reports good movement. The patient had called the supervisor alteration workroom line twice prior to presentation, and we discussed the ACOG recommendation for induction of labor for PROM after a few hours of expectant management for labor, along with the risks and benefits of this vs expectant management and the risks of maternal and infection. The patient vocalized understanding each time, and presented after feeling decreased movement at home and a temperature of 99F. The patient reports an otherwise uncomplicated , confirmed by her medical record. 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 Indications Indication for induction OB: other (PROM) History of Present care: good care, initiated at week # (7), number of visits (12) and pounds weight gain (58) Dating criteria: LMP confirmed by 1st trimester US Ultrasounds: normal 1st trimester US and normal mid trimester US Obstetrical complications: none Medical complications: none Preadmission Labs Blood type: O (+) positive -: Antibody screen: negative, GBS status: negative, HBsAG: negative, HIV: negative and RPR/VDLR: negative -: Chlamydia screen: not detected and Gonorrhea screen: not detected -: Rubella: not immune and Varicella: immune PAP: Normal Cell-free DNA: declined Urine: wnl 1 hr GTT: 134 Evaluation Evaluation Baseline heart rate: 140 Variability: Moderate (11-25) monitor accelerations: Present monitor decelerations: Late (x2) Contraction Frequency (minutes): 5 Uterine Contraction Intensity: Moderate Category of Tracing: Reactive Cervical dilation (cm): 3 Cervical effacement (%): 100 station: -2 Laboratory results: Laboratory Tests 05/23/20 05/23/20 00:45 00:45 WBC 18.8 H RBC 4.06 Hgb 11.9 L Hct 35.9 L MCV 88.4 MCH 29.2 MCHC 33.0 RDW 13.9 Plt Count 207 Neut % (Auto) 85.2 H Lymph % (Auto) 6.2 L [place] % (Auto) 8.1 Eos % (Auto) 0.1 L Baso % (Auto) 0.4 Neut # (Auto) 13709 H Lymph # (Auto) 1200 [place] # (Auto) 1500 H Eos # (Auto) 0 Baso # (Auto) 100 Blood Type O Positive Antibody Screen Negative Comments: Cat 2 EFM with moderate varibility, +accels, +scalp stim. lates x2, variable x1, resolved with maternal repositioning. [facility] Medical History Abnormal Pap smear of cervix (Resolved ~2011) Anxiety (Acute) Carpal tunnel syndrome (Chronic ~2016) Cough (Acute) Depression (Chronic ~2002) Fibrocystic breast (Acute) Hemorrhoids (Acute) History of being hospitalized (Acute) HSV-1 (herpes simplex virus 1) infection (Acute) Pituitary adenoma (Chronic ~2015) Surgical History History of colposcopy (Acute ~04/2014) Family History Father Hypertension Hyperlipidemia Atrial fibrillation Mother Mental health problem Grandfather Cancer Hypertension Grandmother Cancer Mental health problem Grandfather History of heart disease Hyperlipidemia Hypertension Social History marital status: unmarried,living together household members: significant other occupational status: employed current occupational exposures/hazards: Yes (wears a mask to filter dust and mould) special rosie needs: No Smoking Status: Never smoker alcohol intake: current Meds Home Medications and Allergies Home Medications Medication Instructions Recorded Confirmed Type Bilateral Writst Splints #1 ea 05/07/19 04/30/20 Rx prenat.vits,irving,rmq-kauu-cizth 1 tab PO DAILY 10/03/19 04/30/20 History Allergies Allergy/AdvReac Type Severity Reaction Status Date / Time Penicillins Allergy Severe Bruises Verified 05/23/20 08:54 and unable to walk pineapple Allergy Mild numbness Verified 05/23/20 08:54 in the mouth Review of Systems Constitutional Constitutional: Reports system reviewed and no additional complaints, except as documented Cardiovascular Cardiovascular: Reports system reviewed and no additional complaints, except as documented Respiratory Respiratory: Reports system reviewed and no additional complaints, except as documented Gastrointestinal Gastrointestinal: Reports as per HPI Genitourinary Genitourinary: Reports as per HPI Musculoskeletal Musculoskeletal: Reports as per HPI Neurologic Neurologic: Reports system reviewed and no additional complaints, except as documented Exam Vital Signs (past 8 hours): - 05/23/20 03:53 Blood Pressure 118/70 Const General: cooperative, healthy appearing, comfortable and other (breathing through contractions with good control) Resp Effort & Inspection: normal respiratory effort Auscultation: clear to auscultation bilaterally Cardio Rate: regular rate Rhythm: regular rhythm GI Palpation: soft and No tender External Female Exam: normal external appearance and no lesions Presentation: vertex Estimated Weight (lbs): 8 Amniotic Fluid: clear Skin General: no rashes or lesions noted Objective Labs Result Diagrams: 05/23/20 00:45 Labs: Laboratory Results - last 24 hr 05/23/20 05/23/20 00:45 00:45 WBC 18.8 H RBC 4.06 Hgb 11.9 L Hct 35.9 L MCV 88.4 MCH 29.2 MCHC 33.0 RDW 13.9 Plt Count 207 Neut % (Auto) 85.2 H Lymph % (Auto) 6.2 L [place] % (Auto) 8.1 Eos % (Auto) 0.1 L Baso % (Auto) 0.4 Neut # (Auto) 17263 H Lymph # (Auto) 1200 [place] # (Auto) 1500 H Eos # (Auto) 0 Baso # (Auto) 100 Blood Type O Positive Antibody Screen Negative Assessment and Plan Assessment and Plan Assessment and Plan narrative: This patient presents with PROM, and received 1x dose of misoprostol overnight for cervical ripening and is for pitocin induction this morning. We discussed the risk of maternal and infection with rupture >24 hours, the risk of intolerance of labor with pitocin but also with prolonged rupture and a postdates placenta, and the plan of care going forward. We discussed interventions as necessary for maternal and wellbeing, and the patient is amenable to slow pitocin induction and ongoing continuous monitoring. - pitocin per protocol - cEFM, toco - cervical checks only as clinically indicated - Given severe PCN allergy as documented, for clindamycin 900mg IV q8 and gentamicin 5mg/kg IV q24 if develops chorioamnionitis, as GBS negative - IV fluids as indicated
[2020-05-23] MEDS: OXYTOCIN PREMIX 30 UNIT/500 ML PLAST..BAG IV (09:57)
--- NOTE | 2020-05-23 13:02 | PM.OBPNLAB ---
Date/Time Date Patient Seen: 05/23/20 Time Patient Seen: 13:18 Pain Control Pain control: tolerating well Comments: VSS, HR 90s, BPs 121/62 -> 137.63, T 36.6C Pelvic Exam Dilation (cm): 4 Effacement (%): 100 station: -2 (LOT) Amniotic membrane status: Ruptured (clear) Contractions Pitocin rate (mU/min): 4 Contraction frequency (min): 4 Contraction duration (min): 1 Contraction pattern: Irregular (q2-5) Contraction intensity: Moderate Status status: Category ll Heart Rate Baseline: 130 Monitor Accelerations: Present (+scalp stim on exam) Monitor Decelerations: Absent Monitor Variability: Moderate Assessment and Plan Assessment: induction ongoing Plan: continuous present management Comments: This patient is in latent labor, on a low dose of pitocin that will continue to be increased per protocol. Patient reports a history of severe penicillin allergy that resulted in hospitalization as a child meaning that she would require gentamicin and clindamycin, and per guidelines, abx after 24 hours are not indicated as prophylaxis in a GBS negative patient. Patient and fetus are tolerating induction well with no signs of infection, with intermittent periods of cat 2 EFM with lates but largely cat. 1 tracing. Discussed ongoing induction and risks and benefits with patient, who would like to continue. Encourage upright positioning as much as possible.
--- NOTE | 2020-05-23 16:59 | PM.OBPNLAB ---
Date/Time Date Patient Seen: 05/23/20 Time Patient Seen: 16:59 Pelvic Exam Dilation (cm): 6 Effacement (%): 100 station: -2 (LOT) Amniotic membrane status: Ruptured (clear) Contractions Pitocin rate (mU/min): 8 Contraction frequency (min): 3 Contraction pattern: Regular Contraction intensity: Strong/Firm Status status: Category l Heart Rate Baseline: 140 Monitor Accelerations: Present Monitor Decelerations: Absent Monitor Variability: Moderate Assessment and Plan Assessment: induction ongoing Plan: continuous present management Comments: This patient is a @40+5 being induced with pitocin for PROM, after 1x dose of oral misoprostal overnight. The patient is entering active labor, now 6.5cm with a cat 1 EFM and no signs of chorioamnionitis at this time. She reports that her pain is too intense, and is considering a section vs. ongoing induction. We discussed the risks and benefits of section vs ongoing induction, including that she has made appropriate cervical dilation though with some caput and no change in station. The patient will receive an epidural at this time with repeat cervical exam in 2 hours to assess progress.
[2020-05-23] MEDS: ONDANSETRON 4 MG/2 ML INJ IV (17:20)
--- NOTE | 2020-05-23 21:45 | PM.OBPNLAB ---
Date/Time Date Patient Seen: 05/23/20 Time Patient Seen: 21:45 Pelvic Exam Dilation (cm): 9 Effacement (%): 100 station: -1 (LOT on ultrasound) Amniotic membrane status: Ruptured (clear) Contractions Contraction frequency (min): 4 Contraction pattern: Irregular (coupling) Contraction intensity: Strong/Firm Status status: Category ll Heart Rate Baseline: 135 Monitor Accelerations: Present Monitor Decelerations: Variable Monitor Variability: Moderate Comments: reassuring moderate variability, +accels just prior to exam Assessment and Plan Assessment: induction ongoing Plan: continuous present management Comments: This patient has slowly advancing cervical dilation, but in the setting of significant molding on exam and poor engagement of the vertex in the pelvis. ROT presentation was confirmed with ultrasound. The risk of ongoing induction vs. delivery were discussed, and the patient and her partner vocalized understanding. We discussed expectant management with frequent repositioning for 2 more hours vs. section. The patient and her partner plan to discuss their options, but would prefer a repeat exam in 1 hour instead of 2.
[2020-05-23] MEDS: FENT 2MCG/ML BUPIV 0.125% EPI 200 MCG/100 ML PLAST..BAG 14 MCG EPIDURAL (22:09)
--- NOTE | 2020-05-23 23:58 | PM.OBPRVD ---
Events: Prolonged Rupture of Membrane (36 hrs) Labor & Delivery Delivery date: 05/23/20 Intrapartal events: Prolonged Labor > 20 hours Cervical ripening method: per misoprostal protocol (x1 dose) Induction method: per pitocin protocol Delivery monitor: external FHT and external uterine Route of delivery: L&D Laceration Description: Labial (1st degree) Estimated blood loss (mL): 400 Anesthesia type: Epidural Complications: Prolonged rupture of membranes, prolonged latent phase, tight nuchal cord. Narrative: This patient is a 29-year-old G1 now P1 who presented at 40 and 5 after 10 hours of rupture of membranes for clear fluid at home, GBS negative. The patient desired to avoid Pitocin induction initially and had been found to be unfavorable at her last exam in the office, so she received 1 dose of oral misoprostol. She was subsequently started on Pitocin for induction of labor. She had a prolonged latent phase but made consistent cervical change, with a course complicated by an intermittently category 2 tracing but with reassuring features throughout. The patient progressed to fully dilated and after 45 minutes 2nd stage, was delivered of a healthy baby girl weighing 8 lb 4 oz from the OA position. The delivery was remarkable for an extraordinarily tight nuchal cord, which was clamped and cut at the perineum. The shoulders delivered with ease. The baby was handed off directly to nursing staff. The placenta delivered intact with gentle massage, with a three-vessel cord. The immediate period was notable for significant lower uterine segment atony, treated with 30mU of pitocin IV in 500ccs and 0.2mg IM methergine x1 with a PO series to continue. The patient was afebrile, was not tachycardic, and had no other clinical signs of infection throughout her course, and the showed no signs of infection at . There were no other complications in the intrapartum or immediate period. Baby 1: gender: Female Presentation: vertex position: Left Occiput Transverse (Direct OA) Placenta delivery description: Spontaneous cord vessel description: Tight score (1 min): 3 score (5 min): 7 Narrative: Baby was delivered after a remarkably tight nuchal cord was clamped and cut at the perineum, and was initially pale and taken to the warmer for resuscitation. She responded well to this, and was returned to the patient for skin to skin. Plan for aftercare: This patient is for routine care, with the addition of a methergine series. She is high risk for endometritis, but per current guidelines for GBS negative parents, was not prophylaxed with IV antibiotics. This was discussed with the patient and her partner.
[2020-05-24] MEDS: METHYLERGONOVINE 0.2 MG/ML VIAL IM (00:36)
[2020-05-24] MEDS: METHYLERGONOVINE 0.2 MG TABLET PO ×2 (07:40→11:47)
[2020-05-24] MEDS: LANOLIN OINT 7 GM 1 APPLIC TOP (07:40)
[2020-05-24] MEDS: DERMOPLAST SPRAY 20% 60 ML 1 SPRAY TOP (07:41)
--- NOTE | 2020-05-24 09:42 | PM.OBPN.1 ---
Subjective - OB Subjective Patient comments: no complaints, pain well controlled and tolerating diet baby status: doing well feeding status: exclusively breast feeding Narrative: This patient is a 29-year-old G1 now P1 day 1 status post uncomplicated vaginal delivery. The patient presented with prolonged rupture in the postdates. Prior to the beginning of labor, and was induced with Pitocin. She was delivered of a healthy baby girl post delivery complicated by a tight nuchal cord. There were no signs or symptoms of chorioamnionitis intrapartum or immediately . Date Patient Seen: 05/24/20 Time Patient Seen: 09:42 Interval history: This morning, patient is doing well. She denies fevers, chills, abdominal pain, headaches, nausea, visual changes. Patient is ambulating, tolerating p.o., voiding, mild to moderate lochia with no foul odor. Patient is not yet passed flatus. Patient strongly desires discharge later this afternoon. Exam Const General: cooperative, healthy appearing and comfortable Resp Effort & Inspection: normal respiratory effort Auscultation: clear to auscultation bilaterally Cardio Rate: regular rate Rhythm: regular rhythm GI Palpation: soft and No tender Other: Fundus firm, 3 cm below umbilicus. Skin General: no rashes or lesions noted Objective Labs Result Diagrams: 05/23/20 00:45 Assessment & Plan Assessment and Plan (1) Vaginal delivery: Status: Acute Plan day: 1 plan OB: routine care Comments: This patient is recovering appropriately on day 1, with no signs of hemorrhage and no signs of intrauterine infection. Baby's similarly doing well, well and with no sequelae from a tight nuchal cord. The patient strongly desires discharge this afternoon, and was counseled on the usual precautions along with signs and symptoms of delayed hemorrhage in intrauterine infection. Patient will continue the Methergine series the until discharge, and follow up in clinic as usual if no abnormal symptoms develop. All questions were answered. Time Spent With Patient Time: Total time spent is greater than 50% in coordination of care (as documented) at patient's floor/unit and/or counseling patient: Time with patient: less than 15 minutes
--- NOTE | 2020-05-24 09:51 | PM.OBDS.1 ---
Discharge Providers Provider Date of admission: 05/22/20 22:32 Discharge Date: 05/24/20 Primary care physician: Leonarda Zazueta MD Consults: 05/24/20 23:56 Consult to [employer] Livestock Farm Manager Routine Comment: Discharge provider: Caroline Metcalf MD Summary Hospital Course Date Patient Seen: 05/24/20 Time Patient Seen: 08:31 Procedures: Vaginal delivery Hospital Course: This patient was admitted with PROM in the period, and was induced with Pitocin. She was delivered of a healthy baby girl without complication, and discharged on day 1. Peripartum Data Infant Delivery Method: Natural Vaginal Laceration Description: None complications: none Mccune Jacinda: Gender: Female Disposition of : home Discharge Diagnosis (1) Vaginal delivery: Status: Acute Status at Discharge Cognitive/behavioral status at discharge: oriented Functional status at discharge: independent ambulation Overall status at discharge: patient is progressing back to baseline Time Spent with Patient Time attestation: Total time spent providing and/or coordinating discharge services: Objective Labs Result Diagrams: 05/23/20 00:45 Exam Narrative Exam Narrative: See day of discharge progress in a Discharge Plan Discharge Plan Patient Disposition: Home Discharge orders & Medications Prescriptions: New ibuprofen 600 mg tablet 600 mg PO Q8H PRN (Reason: pain) Qty: 30 RF: 0 Continued (DME) Bilateral Writst Splints Qty: 1 RF: 0 prenat.vits,irving,[id number]-rdyav Tablet 1 tab PO DAILY RF: 0 Follow up/Referrals: Leonarda Zazueta MD [Primary Care Provider] - 6 Weeks (Follow up with Dr. Zazueta. Please make appointment when in the office on Sunday.) Diet/Activity/Treatments Diet: Regular Activity: Nothing in the vagina for 6 weeks. Avoid lifting more than 10 lb for 6 weeks. If he develops fever, chills, increasing abdominal pain, bleeding soaking more than 2 pads an hour for 2 hours, headaches, visual changes, muscle aches, or any other concerning symptoms, call the clinic number or come to the emergency room. Skin/Wound/Dressing Care Report to your healthcare provider any signs of infection, such as:: chills, fever, night sweats and increased pain Visit Report/Discharge Packet Instructions: DI for Labor and Delivery, Vaginal Stand Alone Forms: Discharge: Care Visit Report Forms: Patient Portal/API, Stroke Signs & Symptoms Discharge Data Primary Care Provider: Leonarda Zazueta Discharges patient from system. Discharge Date/Time: 05/24/20 21:00
[2020-05-24] MEDS: IBUPROFEN 600 MG TABLET PO (11:47)
[2020-05-24 21:02] VITALS: BP 108/77; PULSE 77; RESP 17; TEMP 37.1
== END 2020-05-24 21:00 | disposition home or self-care (01) | DRG 807 ==
PROVIDERS: Admitting Provider Obstetrics & Gynecology; PCP Family Medicine; Referring Provider Obstetrics & Gynecology; Visit Provider Obstetrics & Gynecology
DX: O42.12 Full-term premature rupture of membranes, onset of labor more than 24 hours following rupture (principal); Z37.0 Single live birth; Z3A.40 40 weeks gestation of pregnancy; O69.81X0 Labor and delivery complicated by cord around neck, without compression, not applicable or unspecified; O63.0 Prolonged first stage (of labor)
CPT/HCPCS: 01967; 59050; 59200; 59400; 59409; 76815; 84112; 85025; 86850; 86900; 86901; G0379; J2210; J2405; J2590

== ENCOUNTER → 2020-08-09 12:22 | Outpatient (CLI) | payer OTHER, MEDICAID, SELFPAY ==
[2020-08-09 13:52] LABS: Prolactin 35.9 ng/mL (3.0-18.6)
[2020-08-11 06:34] LABS: COVID19 Sendout Not Detected (Not Detect)
== END ==
PROVIDERS: Physician Assistant; PCP Family Medicine; Referring Provider Family Medicine; Visit Provider Family Medicine
DX: D35.2 Benign neoplasm of pituitary gland (principal); Z11.59 Encounter for screening for other viral diseases
CPT/HCPCS: 36415; 84146; 87635

== ENCOUNTER → 2021-02-04 10:16 | Outpatient (CLI) | payer OTHER, MEDICAID, SELFPAY ==
[2021-02-04 12:08] LABS: Prolactin 18.4 ng/mL (3.0-18.6)
[2021-02-04 12:12] LABS: Free T3, Triiodothyronine Free 2.62 pg/mL (2.77-5.27); Free T4, Direct Thyroxine 0.82 ng/dL (0.78-2.19)
[2021-02-04 12:26] LABS: Thyroid Stimulating Hormone 1.09 uIU/mL (0.47-4.68)
== END ==
PROVIDERS: PCP Family Medicine; Referring Provider Family Medicine; Visit Provider Family Medicine
DX: D35.2 Benign neoplasm of pituitary gland (principal); F32.9 Major depressive disorder, single episode, unspecified
CPT/HCPCS: 36415; 84146; 84439; 84443; 84481

== ENCOUNTER → 2021-07-03 11:11 | Outpatient (CLI) | payer OTHER, MEDICAID, SELFPAY ==
[2021-07-03 11:59] LABS: COVID19 -Nasal RAPID Negative (Negative)
== END ==
PROVIDERS: PCP Family Medicine; Visit Provider Nurse Practitioner Family
DX: R09.81 Nasal congestion (principal); Z20.822 Contact with and (suspected) exposure to COVID-19
CPT/HCPCS: 87635

== ENCOUNTER → 2021-07-08 10:03 | Outpatient (CLI) | payer OTHER, MEDICAID, SELFPAY ==
[2021-07-08 11:33] LABS: COVID19 -Nasal RAPID Negative (Negative)
== END ==
PROVIDERS: PCP Family Medicine; Visit Provider Nurse Practitioner
DX: Z20.822 Contact with and (suspected) exposure to COVID-19 (principal); R05 Cough; R09.89 Other specified symptoms and signs involving the circulatory and respiratory systems
CPT/HCPCS: 87635

== ENCOUNTER 2021-08-15 11:15 | Outpatient (RCR) | payer OTHER, MEDICAID, SELFPAY ==
--- NOTE | 2021-05-30 15:15 | PT.OIE ---
Current Diagnoses Other specified disorders of muscle (05/30/21) Unspecified urinary incontinence (05/30/21) Past Medical History (Last Updated 02/08/21 @ 18:55 by Leonarda Zazueta MD) Abnormal Pap smear of cervix (~2011) ADD (attention deficit disorder) Anxiety Carpal tunnel syndrome (~2016) Depression (~2002) Fibrocystic breast Hemorrhoids History of being hospitalized History of colposcopy (~04/2014) HSV-1 (herpes simplex virus 1) infection Pituitary adenoma (~2015) Vaginal delivery Past Surgical History (Last Reviewed 05/23/20 @ 09:06 by Caroline Metcalf MD) History of colposcopy (~04/2014) Visit Care Team Role Provider Type Leonarda Zazueta MD Attending Provider Physician Primary Care Provider Referring Provider Specialty: [facility] Address: [address] [place] [address], [facility] Email: [email or web address] Physical Therapy Initial Evaluation PT-OP-A Visit Information Start: 05/30/21 07:40 Freq: Status: Active Protocol: Document 05/30/21 08:15 AMB (Rec: 05/30/21 15:15 AMB [email or web address]) Out-Patient Physical Therapy Visit Information Visit Information Visit Type Treatment Note Visit Start Time 08:15 Visit Stop Time 09:00 Total Visit Minutes 45 Visit Number 1 PT-OP-B Current Condition Start: 05/30/21 07:40 Freq: Status: Active Protocol: Document 05/30/21 08:15 AMB (Rec: 05/30/21 08:59 AMB [id number]) Current Condition History of Current Condition Onset Date May 2020 Current Complaints mixed urinary incontinence History of Current Condition Stress incontinence. Urgency when needs to go to the bathroom sometimes a small leak, and sometimes a large leak. Leaks about 3x/day, staying the same since gave a year ago. Gr I tear, about 30 minutes of pushing. Treatment Goals Patient/Caregiver Goals decrease leaking Prior Functional Status Baseline Function- ADL's Independent Baseline Function- Mobility Independent Current Functional Impairments (Reported) Functional Limitations- ADL's Leaking due to mixed stress and urge urinary incontinence Personal Factors Other Personal Factors That May Effect drinks a lot of coffee; 6 cups Therapy/Recovery /day PT-OP-I Pelvic Floor Start: 05/30/21 07:40 Freq: Status: Active Protocol: Document 05/30/21 08:15 AMB (Rec: 05/30/21 15:15 AMB [email or web address]) Pelvic Floor Assessment Urine Pelvic Floor Surgery No Urinary Symptoms Urge Sensation Leakage Size Large Leakage Cause Cough,Sneeze,Urge Leaks Per Day 3 Voiding Frequency every 2 hours Urine Pad Type Panty Liner Bowel Other Bowel Symptoms constipated during , not now Prolapse Cystocele Grade 3 Prolapse Comments To level of introitus with valsalva, at level of hymenal remnants at rest- pt denies symptoms of heaviness Perineal Descent Resting Absent Bearing Present Contraction Ability Voluntary Contraction Moderate Voluntary Relaxation Moderate Manual Muscle Testing Left 3 Manual Muscle Testing Right 3 Manual Muscle Testing Anterior 3 Manual Muscle Testing Posterior 3 Muscle Endurance (Seconds) 5 Number of Quick Contractions In 10 5 Seconds Comments Pelvic Floor Comments good contractile ability in supine, no excessive compensation in abs or gluteals seen, pt does notice more fatigue in standing PT-OP-T Assessment and Plan Start: 05/30/21 07:40 Freq: Status: Active Protocol: Document 05/30/21 08:15 AMB (Rec: 05/30/21 15:15 AMB [email or web address]) Physical Therapy Assessment Rehab Potential Rehabilitation Potential Good Evaluation Complexity Number of Personal Factors/Comorbidities 0 Number of Body Systems Impaired 1-2 Clinical Presentation at Evaluation Stable Impairments Impairments Activity Tolerance,Functional Activities,Strength Goals Three Impairment Stress incontinence Short Term Goal (STG) Martina will contract her pelvic floor muscles in standing for 10 seconds without holding her breath to show improved pelvic floor strength. STG Duration 4 weeks Ventilation Equipment Tender Goal (LTG) Martina will be able to laugh and sneeze without leaking urine. LTG Duration 8 weeks Two Impairment Urgency Short Term Goal (STG) Martina will be able to go into a bathroom without rushing to void. STG Duration 4 weeks Ventilation Equipment Tender Goal (LTG) Martina will decrease the number of leaks from 3x/day to 1x/week or less. LTG Duration 8 weeks One Impairment HEP Short Term Goal (STG) Martina will be independent and consistent with a HEP to progress her pelvic floor strengthening. STG Duration 4 weeks Assessment Summary Assessment Martina attends physical therapy with mixed urinary incontinence that has been staying the same since the of her first child one year ago. While she has not noticed symptoms of prolapse, she did show cystocele with bearing down. She was educated on urgency management and the role of excessive amounts of caffeine, as well as beginning to progress pelvic floor strengthening exercises for her stress incontinence. While she was able to contract her pelvic floor appropriately, she would benefit from strengthening and to continue to instruct her in urgency reduction. Physical Therapy Plan Frequency and Duration Frequency of Treatment 1x/Week Duration of Treatment 8 weeks Plan of Care Start Date 05/30/21 Plan of Care End Date 07/25/21 Therapeutic Interventions Therapeutic Interventions Home Exercise Program,Joint Mobilizations,Manual Therapy, Neuromuscular Re-education, Self-Care/Home Management,Soft Tissue Mobilization, Therapeutic Activities, Therapeutic Exercises Modalities Biofeedback,Cold Pack/Ice Massage,Electric Stimulation, Hot Packs Next Visit Focus/Plan Next Note Type Treatment Note Next Visit Plan progress HEP consider sitting/ standing, sEMG for biofeedback , follow up on urge reduction strategies
--- NOTE | 2021-05-30 15:15 | PT.OPPOC ---
Physical, Occupational & Speech Therapy At [facility] Current Diagnoses Other specified disorders of muscle (05/30/21) Unspecified urinary incontinence (05/30/21) Visit Care Team Role Provider Type Leonarda Zazueta MD Attending Provider Physician Primary Care Provider Referring Provider Specialty: Family Practice Address: [address] [place] [address], [id number] Email: [email or web address] Plan Of Care PT-OP-T Assessment and Plan Start: 05/30/21 07:40 Freq: Status: Active Protocol: Document 05/30/21 08:15 AMB (Rec: 05/30/21 15:15 AMB [email or web address]) Physical Therapy Assessment Rehab Potential Rehabilitation Potential Good Evaluation Complexity Number of Personal Factors/Comorbidities 0 Number of Body Systems Impaired 1-2 Clinical Presentation at Evaluation Stable Impairments Impairments Activity Tolerance,Functional Activities,Strength Goals Three Impairment Stress incontinence Short Term Goal (STG) Martina will contract her pelvic floor muscles in standing for 10 seconds without holding her breath to show improved pelvic floor strength. STG Duration 4 weeks Half-Way Goal (LTG) Martina will be able to laugh and sneeze without leaking urine. LTG Duration 8 weeks Two Impairment Urgency Short Term Goal (STG) Martina will be able to go into a bathroom without rushing to void. STG Duration 4 weeks Half-Way Goal (LTG) Martina will decrease the number of leaks from 3x/day to 1x/week or less. LTG Duration 8 weeks One Impairment HEP Short Term Goal (STG) Martina will be independent and consistent with a HEP to progress her pelvic floor strengthening. STG Duration 4 weeks Assessment Summary Assessment Martina attends physical therapy with mixed urinary incontinence that has been staying the same since the of her first child one year ago. While she has not noticed symptoms of prolapse, she did show cystocele with bearing down. She was educated on urgency management and the role of excessive amounts of caffeine, as well as beginning to progress pelvic floor strengthening exercises for her stress incontinence. While she was able to contract her pelvic floor appropriately, she would benefit from strengthening and to continue to instruct her in urgency reduction. Physical Therapy Plan Frequency and Duration Frequency of Treatment 1x/Week Duration of Treatment 8 weeks Plan of Care Start Date 05/30/21 Plan of Care End Date 07/25/21 Therapeutic Interventions Therapeutic Interventions Home Exercise Program,Joint Mobilizations,Manual Therapy, Neuromuscular Re-education, Self-Care/Home Management,Soft Tissue Mobilization, Therapeutic Activities, Therapeutic Exercises Modalities Biofeedback,Cold Pack/Ice Massage,Electric Stimulation, Hot Packs Next Visit Focus/Plan Next Note Type Treatment Note Next Visit Plan progress HEP consider sitting/ standing, sEMG for biofeedback , follow up on urge reduction strategies Plan of Care Dates Plan of Care Start Date 05/30/21 Plan of Care End Date 07/25/21 Electronically Signed by: Katiana Carpio, PT 05/30/21 [id number] Please Sign and Return: I have reviewed this Plan of Care and certify that the skilled therapy services above are required to meet the patient?s needs. Physician Signature Date Printed Name and Credentials Clinical Instructor Signature Printed Name and Credentials
--- NOTE | 2021-06-13 15:25 | PT.OTN ---
Current Diagnoses Other specified disorders of muscle (06/13/21) Unspecified urinary incontinence (06/13/21) Physical Therapy Treatment Note PT-OP-A Visit Information Start: 05/30/21 07:40 Freq: Status: Active Protocol: Document 06/13/21 13:30 AMB (Rec: 06/13/21 14:40 AMB [id number]) Out-Patient Physical Therapy Visit Information Visit Information Visit Type Treatment Note Visit Start Time 13:30 Visit Stop Time 14:15 Total Visit Minutes 45 Visit Number 2 PT-OP-B Current Condition Start: 05/30/21 07:40 Freq: Status: Active Protocol: Document 05/30/21 08:15 AMB (Rec: 05/30/21 08:59 AMB [id number]) Current Condition History of Current Condition Onset Date May 2020 Current Complaints mixed urinary incontinence History of Current Condition Stress incontinence. Urgency when needs to go to the bathroom sometimes a small leak, and sometimes a large leak. Leaks about 3x/day, staying the same since gave a year ago. Gr I tear, about 30 minutes of pushing. Treatment Goals Patient/Caregiver Goals decrease leaking Prior Functional Status Baseline Function- ADL's Independent Baseline Function- Mobility Independent Current Functional Impairments (Reported) Functional Limitations- ADL's Leaking due to mixed stress and urge urinary incontinence Personal Factors Other Personal Factors That May Effect drinks a lot of coffee; 6 cups Therapy/Recovery /day PT-OP-C Subjective Start: 05/30/21 07:40 Freq: Status: Active Protocol: Document 06/13/21 13:30 AMB (Rec: 06/13/21 14:40 AMB [id number]) OP-PT Subjective Patient Comments Patient Comments Urgency is getting better, leaking less. PT-OP-I Pelvic Floor Start: 05/30/21 07:40 Freq: Status: Active Protocol: Document 05/30/21 08:15 AMB (Rec: 05/30/21 15:15 AMB [email or web address]) Pelvic Floor Assessment Urine Pelvic Floor Surgery No Urinary Symptoms Urge Sensation Leakage Size Large Leakage Cause Cough,Sneeze,Urge Leaks Per Day 3 Voiding Frequency every 2 hours Urine Pad Type Panty Liner Bowel Other Bowel Symptoms constipated during , not now Prolapse Cystocele Grade 3 Prolapse Comments To level of introitus with valsalva, at level of hymenal remnants at rest- pt denies symptoms of heaviness Perineal Descent Resting Absent Bearing Present Contraction Ability Voluntary Contraction Moderate Voluntary Relaxation Moderate Manual Muscle Testing Left 3 Manual Muscle Testing Right 3 Manual Muscle Testing Anterior 3 Manual Muscle Testing Posterior 3 Muscle Endurance (Seconds) 5 Number of Quick Contractions In 10 5 Seconds Comments Pelvic Floor Comments good contractile ability in supine, no excessive compensation in abs or gluteals seen, pt does notice more fatigue in standing PT-OP-Q Treatments Start: 05/30/21 07:40 Freq: Status: Active Protocol: Document 06/13/21 13:30 AMB (Rec: 06/13/21 15:24 AMB [email or web address]) Therapeutic Exercises Standing Exercises 1 Standing Exercise Name sit to stand with pelvic floor Reps/Minutes 10 Neuro Re-Education Treatment Other Activities 1 Details sEMG Comments in standing, long holds and quick flicks PT-OP-T Assessment and Plan Start: 05/30/21 07:40 Freq: Status: Active Protocol: Document 06/13/21 13:30 AMB (Rec: 06/13/21 14:40 AMB [id number]) Physical Therapy Assessment Assessment Summary Assessment 25 max 16 avg, baseline 4.8 in standing. Martina did well felt a little fatigue towards end of 10 second hold after 10 reps, but did well without holding breath or using abdominals. Physical Therapy Plan Next Visit Focus/Plan Next Note Type Treatment Note Next Visit Plan Progress standing- continue to work on urge suppression, consider urge suppression with intercourse
--- NOTE | 2021-06-29 13:33 | PT.OTN ---
Current Diagnoses Other specified disorders of muscle (06/29/21) Unspecified urinary incontinence (06/29/21) Physical Therapy Treatment Note PT-OP-A Visit Information Start: 05/30/21 07:40 Freq: Status: Active Protocol: Document 06/29/21 09:45 AMB (Rec: 06/29/21 10:26 AMB [id number]) Out-Patient Physical Therapy Visit Information Visit Information Visit Type Treatment Note Visit Start Time 09:45 Visit Stop Time 10:30 Total Visit Minutes 45 Visit Number 3 PT-OP-B Current Condition Start: 05/30/21 07:40 Freq: Status: Active Protocol: Document 05/30/21 08:15 AMB (Rec: 05/30/21 08:59 AMB [id number]) Current Condition History of Current Condition Onset Date May 2020 Current Complaints mixed urinary incontinence History of Current Condition Stress incontinence. Urgency when needs to go to the bathroom sometimes a small leak, and sometimes a large leak. Leaks about 3x/day, staying the same since gave a year ago. Gr I tear, about 30 minutes of pushing. Treatment Goals Patient/Caregiver Goals decrease leaking Prior Functional Status Baseline Function- ADL's Independent Baseline Function- Mobility Independent Current Functional Impairments (Reported) Functional Limitations- ADL's Leaking due to mixed stress and urge urinary incontinence Personal Factors Other Personal Factors That May Effect drinks a lot of coffee; 6 cups Therapy/Recovery /day PT-OP-C Subjective Start: 05/30/21 07:40 Freq: Status: Active Protocol: Document 06/29/21 09:45 AMB (Rec: 06/29/21 10:26 AMB [id number]) OP-PT Subjective Patient Comments Patient Comments Some small leaks, but not large leaks. PT-OP-I Pelvic Floor Start: 05/30/21 07:40 Freq: Status: Active Protocol: Document 05/30/21 08:15 AMB (Rec: 05/30/21 15:15 AMB [email or web address]) Pelvic Floor Assessment Urine Pelvic Floor Surgery No Urinary Symptoms Urge Sensation Leakage Size Large Leakage Cause Cough,Sneeze,Urge Leaks Per Day 3 Voiding Frequency every 2 hours Urine Pad Type Panty Liner Bowel Other Bowel Symptoms constipated during , not now Prolapse Cystocele Grade 3 Prolapse Comments To level of introitus with valsalva, at level of hymenal remnants at rest- pt denies symptoms of heaviness Perineal Descent Resting Absent Bearing Present Contraction Ability Voluntary Contraction Moderate Voluntary Relaxation Moderate Manual Muscle Testing Left 3 Manual Muscle Testing Right 3 Manual Muscle Testing Anterior 3 Manual Muscle Testing Posterior 3 Muscle Endurance (Seconds) 5 Number of Quick Contractions In 10 5 Seconds Comments Pelvic Floor Comments good contractile ability in supine, no excessive compensation in abs or gluteals seen, pt does notice more fatigue in standing PT-OP-Q Treatments Start: 05/30/21 07:40 Freq: Status: Active Protocol: Document 06/29/21 13:00 AMB (Rec: 06/29/21 13:33 AMB [email or web address]) Therapeutic Exercises Supine Exercises 1 Supine Exercise Name supine december with PF and TA Reps/Minutes 10 Standing Exercises 2 Standing Exercise Name mini lunge with PF Reps/Minutes 10 1 Standing Exercise Name sit to stand with pelvic floor Reps/Minutes 10 PT-OP-T Assessment and Plan Start: 05/30/21 07:40 Freq: Status: Active Protocol: Document 06/29/21 13:00 AMB (Rec: 06/29/21 13:33 AMB [email or web address]) Physical Therapy Assessment Goals Three Impairment Stress incontinence Short Term Goal (STG) Martina will contract her pelvic floor muscles in standing for 10 seconds without holding her breath to show improved pelvic floor strength. STG Duration 4 weeks Fish Machine Feeder Goal (LTG) Martina will be able to laugh and sneeze without leaking urine. LTG Duration 8 weeks Two Impairment Urgency Short Term Goal (STG) Martina will be able to go into a bathroom without rushing to void. STG Duration 4 weeks Fish Machine Feeder Goal (LTG) Martina will decrease the number of leaks from 3x/day to 1x/week or less. LTG Duration 8 weeks One Impairment HEP Short Term Goal (STG) Martina will be independent and consistent with a HEP to progress her pelvic floor strengthening. STG Duration 4 weeks Assessment Summary Assessment Martina was concerned she wasn 't performing exercises apporpriately, but checked and she seems to be performing appropriately and was able to tolerate progression today. Encouraged her to perform with the back exercises she is already doing and to add in to brushing teeth, when she is lifting her daughter. Physical Therapy Plan Next Visit Focus/Plan Next Note Type Treatment Note Next Visit Plan Progress standing- continue to work on urge suppression, consider urge suppression with intercourse
--- NOTE | 2021-07-18 12:02 | PT.OTN ---
Current Diagnoses Other specified disorders of muscle (07/18/21) Unspecified urinary incontinence (07/18/21) Physical Therapy Treatment Note PT-OP-A Visit Information Start: 05/30/21 07:40 Freq: Status: Active Protocol: Document 07/18/21 11:15 AMB (Rec: 07/18/21 12:02 AMB [id number]) Out-Patient Physical Therapy Visit Information Visit Information Visit Type Treatment Note Visit Start Time 11:15 Visit Stop Time 12:00 Total Visit Minutes 45 Visit Number 4 PT-OP-B Current Condition Start: 05/30/21 07:40 Freq: Status: Active Protocol: Document 05/30/21 08:15 AMB (Rec: 05/30/21 08:59 AMB [id number]) Current Condition History of Current Condition Onset Date May 2020 Current Complaints mixed urinary incontinence History of Current Condition Stress incontinence. Urgency when needs to go to the bathroom sometimes a small leak, and sometimes a large leak. Leaks about 3x/day, staying the same since gave a year ago. Gr I tear, about 30 minutes of pushing. Treatment Goals Patient/Caregiver Goals decrease leaking Prior Functional Status Baseline Function- ADL's Independent Baseline Function- Mobility Independent Current Functional Impairments (Reported) Functional Limitations- ADL's Leaking due to mixed stress and urge urinary incontinence Personal Factors Other Personal Factors That May Effect drinks a lot of coffee; 6 cups Therapy/Recovery /day PT-OP-C Subjective Start: 05/30/21 07:40 Freq: Status: Active Protocol: Document 07/18/21 11:15 AMB (Rec: 07/18/21 12:02 AMB [id number]) OP-PT Subjective Patient Comments Patient Comments Pt notes she has much less urgency when she doesn't drink coffee PT-OP-I Pelvic Floor Start: 05/30/21 07:40 Freq: Status: Active Protocol: Document 05/30/21 08:15 AMB (Rec: 05/30/21 15:15 AMB [email or web address]) Pelvic Floor Assessment Urine Pelvic Floor Surgery No Urinary Symptoms Urge Sensation Leakage Size Large Leakage Cause Cough,Sneeze,Urge Leaks Per Day 3 Voiding Frequency every 2 hours Urine Pad Type Panty Liner Bowel Other Bowel Symptoms constipated during , not now Prolapse Cystocele Grade 3 Prolapse Comments To level of introitus with valsalva, at level of hymenal remnants at rest- pt denies symptoms of heaviness Perineal Descent Resting Absent Bearing Present Contraction Ability Voluntary Contraction Moderate Voluntary Relaxation Moderate Manual Muscle Testing Left 3 Manual Muscle Testing Right 3 Manual Muscle Testing Anterior 3 Manual Muscle Testing Posterior 3 Muscle Endurance (Seconds) 5 Number of Quick Contractions In 10 5 Seconds Comments Pelvic Floor Comments good contractile ability in supine, no excessive compensation in abs or gluteals seen, pt does notice more fatigue in standing PT-OP-Q Treatments Start: 05/30/21 07:40 Freq: Status: Active Protocol: Document 07/18/21 11:15 AMB (Rec: 07/18/21 12:02 AMB [id number]) Therapeutic Exercises Supine Exercises 3 Supine Exercise Name table top tap down Comments with PF and TA 1 Supine Exercise Name supine december with PF and TA Reps/Minutes 10 Standing Exercises 2 Standing Exercise Name mini lunge with PF Reps/Minutes 10 Comments added walking PT-OP-T Assessment and Plan Start: 05/30/21 07:40 Freq: Status: Active Protocol: Document 07/18/21 11:15 AMB (Rec: 07/18/21 12:02 AMB [id number]) Physical Therapy Assessment Goals Three Impairment Stress incontinence Short Term Goal (STG) Martina will contract her pelvic floor muscles in standing for 10 seconds without holding her breath to show improved pelvic floor strength. STG Duration MET [employer] Goal (LTG) Martina will be able to laugh and sneeze without leaking urine.-- LTG Duration 8 weeks Two Impairment Urgency Short Term Goal (STG) Martina will be able to go into a bathroom without rushing to void.-- when has coffee, it's a lot harder STG Duration 4 weeks Care Home Goal (LTG) Martina will decrease the number of leaks from 3x/day to 1x/week or less. LTG Duration 8 weeks One Impairment HEP Short Term Goal (STG) Martina will be independent and consistent with a HEP to progress her pelvic floor strengthening. STG Duration 4 weeks Assessment Summary Assessment Progressed exercises and encouraged continued reduction of coffee to see a reduction in urgency. Physical Therapy Plan Next Visit Focus/Plan Next Note Type Treatment Note Next Visit Plan Progress standing- continue to work on urge suppression, consider urge suppression with intercourse
--- NOTE | 2021-08-15 14:50 | PT.OTN ---
Current Diagnoses Other specified disorders of muscle (08/15/21) Unspecified urinary incontinence (08/15/21) Physical Therapy Treatment Note PT-OP-A Visit Information Start: 05/30/21 07:40 Freq: Status: Active Protocol: Document 08/15/21 11:19 AMB (Rec: 08/15/21 12:11 AMB [id number]) Out-Patient Physical Therapy Visit Information Visit Information Visit Type Treatment Note Visit Start Time 11:15 Visit Stop Time 12:00 Total Visit Minutes 45 Visit Number 5 PT-OP-B Current Condition Start: 05/30/21 07:40 Freq: Status: Active Protocol: Document 05/30/21 08:15 AMB (Rec: 05/30/21 08:59 AMB [id number]) Current Condition History of Current Condition Onset Date May 2020 Current Complaints mixed urinary incontinence History of Current Condition Stress incontinence. Urgency when needs to go to the bathroom sometimes a small leak, and sometimes a large leak. Leaks about 3x/day, staying the same since gave a year ago. Gr I tear, about 30 minutes of pushing. Treatment Goals Patient/Caregiver Goals decrease leaking Prior Functional Status Baseline Function- ADL's Independent Baseline Function- Mobility Independent Current Functional Impairments (Reported) Functional Limitations- ADL's Leaking due to mixed stress and urge urinary incontinence Personal Factors Other Personal Factors That May Effect drinks a lot of coffee; 6 cups Therapy/Recovery /day PT-OP-C Subjective Start: 05/30/21 07:40 Freq: Status: Active Protocol: Document 08/15/21 11:19 AMB (Rec: 08/15/21 12:11 AMB [id number]) OP-PT Subjective Patient Comments Patient Comments Pt has returned to coffee and is feeling worse now. PT-OP-I Pelvic Floor Start: 05/30/21 07:40 Freq: Status: Active Protocol: Document 05/30/21 08:15 AMB (Rec: 05/30/21 15:15 AMB [email or web address]) Pelvic Floor Assessment Urine Pelvic Floor Surgery No Urinary Symptoms Urge Sensation Leakage Size Large Leakage Cause Cough,Sneeze,Urge Leaks Per Day 3 Voiding Frequency every 2 hours Urine Pad Type Panty Liner Bowel Other Bowel Symptoms constipated during , not now Prolapse Cystocele Grade 3 Prolapse Comments To level of introitus with valsalva, at level of hymenal remnants at rest- pt denies symptoms of heaviness Perineal Descent Resting Absent Bearing Present Contraction Ability Voluntary Contraction Moderate Voluntary Relaxation Moderate Manual Muscle Testing Left 3 Manual Muscle Testing Right 3 Manual Muscle Testing Anterior 3 Manual Muscle Testing Posterior 3 Muscle Endurance (Seconds) 5 Number of Quick Contractions In 10 5 Seconds Comments Pelvic Floor Comments good contractile ability in supine, no excessive compensation in abs or gluteals seen, pt does notice more fatigue in standing PT-OP-Q Treatments Start: 05/30/21 07:40 Freq: Status: Active Protocol: Document 08/15/21 11:15 AMB (Rec: 08/18/21 14:48 AMB [email or web address]) Self-Care/Home Management Treatment Activities Self-Care/Home Management Activities Discussed bladder irritants in depth. Martina is struggling with reducing her caffeine and alcohol intake. She continues to have about 1 leak per day. It is very difficult when she goes to a water quality shed where there is not a bathroom. She can use urge suppression techniques, but then 5-10 minutes later the urge comes back and this is a problem if there is not a bathroom when she gets an urge. Not having a bathroom near by is a trigger. Continued to educate in trigger management, bladder spasm management. PT-OP-T Assessment and Plan Start: 05/30/21 07:40 Freq: Status: Active Protocol: Document 08/15/21 11:19 AMB (Rec: 08/15/21 12:11 AMB [id number]) Physical Therapy Assessment Goals Three Impairment Stress incontinence Short Term Goal (STG) Martina will contract her pelvic floor muscles in standing for 10 seconds without holding her breath to show improved pelvic floor strength. STG Duration MET [facility] Goal (LTG) Martina will be able to laugh and sneeze without leaking urine.-- LTG Duration MET Two Impairment Urgency Short Term Goal (STG) Martina will be able to go into a bathroom without rushing to void.-- when has coffee, it's a lot harder STG Duration 4 weeks Professor Of Literacy Goal (LTG) Martina will decrease the number of leaks from 3x/day to 1x/week or less. LTG Duration MET One Impairment HEP Short Term Goal (STG) Martina will be independent and consistent with a HEP to progress her pelvic floor strengthening. STG Duration MET Assessment Summary Assessment Martina is going to follow up with her doctor if she isn't better in about 2 months. She is going to try to reduce her coffee and is going to stop alcohol. If this doesn't help , she will follow up with her physician. Overall she has improved from 3 leaks per day to 1, her stress incontinence is better, but she continues to have urgency and frequency. She was doing better but has been drinking more coffee again and she admits that is a big problem for her. Physical Therapy Plan Discharge Physical Therapy Discharge Reasons Goals Met Discharge Comments Pt went from 3x/day for leaks to 1x/day to leaking. Biggest issue continues to be urge, stress incontinence has improved.
--- NOTE | 2021-08-15 14:51 | PT.OPPOC ---
Physical, Occupational & Speech Therapy At [facility] Current Diagnoses Other specified disorders of muscle (08/15/21) Unspecified urinary incontinence (08/15/21) Visit Care Team Role Provider Type Leonarda Zazueta MD Attending Provider Physician Primary Care Provider Referring Provider Specialty: Family Practice Address: [address] [place] [address], [id number] Email: [email or web address] Plan Of Care PT-OP-T Assessment and Plan Start: 05/30/21 07:40 Freq: Status: Active Protocol: Document 08/15/21 11:19 AMB (Rec: 08/15/21 12:11 AMB [id number]) Physical Therapy Assessment Goals Three Impairment Stress incontinence Short Term Goal (STG) Martina will contract her pelvic floor muscles in standing for 10 seconds without holding her breath to show improved pelvic floor strength. STG Duration MET Intermediate Goal (LTG) Martina will be able to laugh and sneeze without leaking urine.-- LTG Duration MET Two Impairment Urgency Short Term Goal (STG) Martina will be able to go into a bathroom without rushing to void.-- when has coffee, it's a lot harder STG Duration 4 weeks Sweeper Driver Goal (LTG) Martina will decrease the number of leaks from 3x/day to 1x/week or less. LTG Duration MET One Impairment HEP Short Term Goal (STG) Martina will be independent and consistent with a HEP to progress her pelvic floor strengthening. STG Duration MET Assessment Summary Assessment Martina is going to follow up with her doctor if she isn't better in about 2 months. She is going to try to reduce her coffee and is going to stop alcohol. If this doesn't help , she will follow up with her physician. Overall she has improved from 3 leaks per day to 1, her stress incontinence is better, but she continues to have urgency and frequency. She was doing better but has been drinking more coffee again and she admits that is a big problem for her. Physical Therapy Plan Frequency and Duration Frequency of Treatment 1x/Week Duration of Treatment 1 month Plan of Care Start Date 07/25/21 Plan of Care End Date 08/25/21 Therapeutic Interventions Therapeutic Interventions Home Exercise Program,Joint Mobilizations,Manual Therapy, Neuromuscular Re-education, Self-Care/Home Management,Soft Tissue Mobilization, Therapeutic Activities, Therapeutic Exercises Modalities Biofeedback,Cold Pack/Ice Massage,Electric Stimulation, Hot Packs Discharge Physical Therapy Discharge Reasons Goals Met Discharge Comments Pt went from 3x/day for leaks to 1x/day to leaking. Biggest issue continues to be urge, stress incontinence has improved. Plan of Care Dates Plan of Care Start Date 07/25/21 Plan of Care End Date 08/25/21 Electronically Signed by: Katiana Carpio, PT 08/18/21 [id number] Please Sign and Return: I have reviewed this Plan of Care and certify that the skilled therapy services above are required to meet the patient?s needs. Physician Signature Date Printed Name and Credentials Clinical Instructor Signature Printed Name and Credentials
== END 2021-08-19 09:09 ==
LOC: PHYS 11:15
PROVIDERS: PCP Family Medicine; Referring Provider Family Medicine; Visit Provider Family Medicine
DX: M62.89 Other specified disorders of muscle (principal); R32 Unspecified urinary incontinence
CPT/HCPCS: 97110; 97112; 97161; 97535

== ENCOUNTER → 2021-10-23 16:56 | Outpatient (CLI) | payer OTHER, MEDICAID, SELFPAY ==
[2021-10-23 17:51] LABS: COVID19 -Nasal RAPID Negative (Negative)
== END ==
PROVIDERS: PCP Family Medicine; Visit Provider Nurse Practitioner Critical Care Medicine
DX: Z20.822 Contact with and (suspected) exposure to COVID-19 (principal)
CPT/HCPCS: 87635

== ENCOUNTER → 2021-11-11 10:47 | Outpatient (CLI) | payer OTHER, MEDICAID, SELFPAY ==
[2021-11-11 12:08] LABS: COVID19 -Nasal RAPID Negative (Negative)
== END ==
PROVIDERS: PCP Family Medicine; Visit Provider Nurse Practitioner Family
DX: Z20.822 Contact with and (suspected) exposure to COVID-19 (principal)
CPT/HCPCS: 87635

== ENCOUNTER → 2023-01-23 14:55 | Outpatient (CLI) | payer OTHER, MEDICAID, SELFPAY ==
[2023-01-23 15:11] LABS: Add Manual Diff / Slide Review NO; Basophils Absolute Auto 0 /uL (0-100); Basophils Percent Auto 0.5 % (0-2); Eosinophils Absolute Auto 100 /uL (0-450); Eosinophils Percent Auto 0.8 % (2-4); Hematocrit 36.5 % (36-46); Hemoglobin 12.5 g/dL (12.0-16.0); Lymphocytes Absolute Auto 2100 /uL (1100-4500); Lymphocytes Percent Auto 30.9 % (25-40); Mean Corpuscular HGB Conc 34.2 % (30-36); Mean Corpuscular Hemoglobin 30.4 PG (26-34); Mean Corpuscular Volume 89.1 fL (80-100); Monocytes Absolute Auto 500 /uL (0-900); Monocytes Percent Auto 7.7 % (3-14); Neutrophils Absolute Auto 4000 /uL (1500-7000); Neutrophils Percent Auto 60.1 % (50-75); Platelet Count 221 X10^3/uL (150-400); White Blood Cell Count 6.7 X10^3/uL (4.5-11.0)
[2023-01-23 16:10] LABS: TSH w/ Reflex to FT4 1.45 uIU/mL (0.47-4.68)
[2023-01-23 16:25] LABS: Vitamin B12 245 pg/mL (239-931)
[2023-01-23 17:13] LABS: Vitamin D 25 Hydroxy (D3) 28.8 ng/mL (30.0-100.0)
== END ==
PROVIDERS: PCP Family Medicine; Referring Provider Family Medicine; Visit Provider Family Medicine
DX: F32.A Depression, unspecified (principal)
CPT/HCPCS: 36415; 82306; 82607; 84443; 85025

== ENCOUNTER → 2023-03-15 17:50 | Outpatient (CLI) | payer OTHER, MEDICAID, SELFPAY ==
--- NOTE | 2023-03-15 17:51 | DI.RAD.S_ITS ---
PROCEDURE: XR CHEST 2V INDICATIONS: chronic cough TECHNIQUE: 2 views of the chest were acquired. COMPARISON: None. FINDINGS: Surgical changes and devices: None. Lungs and pleura: Lungs are clear. No pleural effusions or pneumothorax. Mild peribronchial cuffing. Mediastinum: Mediastinal contours are normal. Heart size is normal. Bones and chest wall: No suspicious bony abnormalities. Soft tissues appear unremarkable. IMPRESSION: Peribronchial cuffing, typically indicating infectious or inflammatory bronchitis. Dictated by: Blaise Gotti M.D. on 03/16/2023 at 9:05 Approved by: Blaise Gotti M.D. on 03/16/2023 at 9:06
== END ==
PROVIDERS: PCP Family Medicine; Referring Provider Family Medicine; Visit Provider Family Medicine
DX: R05.3 Chronic cough (principal)
CPT/HCPCS: 71046

== ENCOUNTER → 2023-06-04 10:04 | Outpatient (CLI) | payer OTHER, SELFPAY ==
[2023-06-04 12:21] LABS: Influenza A - CEPHEID Flu A NEGATIVE (NEGATIVE); Influenza B - CEPHEID Flu B NEGATIVE (NEGATIVE); Respiratory Syncytial Virus Negative (Negative)
[2023-06-04 12:23] LABS: COVID-19 CEPHEID 4-PLEX PCR Negative (Negative)
== END ==
PROVIDERS: PCP Family Medicine; Visit Provider Physician Assistant
DX: R05.1 Acute cough (principal)
CPT/HCPCS: 0241U

== ENCOUNTER → 2023-06-06 11:33 | Outpatient (CLI) | payer OTHER, SELFPAY ==
[2023-06-06 13:19] LABS: Prolactin 17.8 ng/mL (3.0-18.6)
== END ==
PROVIDERS: PCP Family Medicine; Referring Provider Physician Assistant; Visit Provider Physician Assistant
DX: D35.2 Benign neoplasm of pituitary gland (principal)
CPT/HCPCS: 36415; 84146

== ENCOUNTER → 2023-06-22 08:39 | Outpatient (CLI) | payer OTHER, SELFPAY ==
[2023-06-22 10:56] LABS: Vitamin D 25 Hydroxy (D3) 65.1 ng/mL (30.0-100.0)
[2023-06-22 11:31] LABS: Vitamin B12 570 pg/mL (239-931)
== END ==
LOC: RESP 08:39
PROVIDERS: PCP Family Medicine; Referring Provider Physician Assistant; Visit Provider Physician Assistant
DX: R05.9 Cough, unspecified (principal); E53.8 Deficiency of other specified B group vitamins; E55.9 Vitamin D deficiency, unspecified; J98.8 Other specified respiratory disorders
CPT/HCPCS: 36415; 82306; 82607; 94060; 94726; 94729

== ENCOUNTER → 2023-09-28 11:25 | Outpatient (CLI) | payer OTHER, SELFPAY ==
--- NOTE | 2023-09-28 11:30 | DI.MRI.S_ITS ---
PROCEDURE: MR BRAIN (PITUITARY) WWO CON INDICATIONS: History pituitary microadenoma 7mm TECHNIQUE: Noncontrast sagittal and axial FLAIR, axial gradient echo, axial diffusion and ADC through the brain. Thin-slice sagittal and coronal T1 spin echo, coronal T2 fast spin echo through the pituitary. After the administration contrast, optional dynamic coronal T1 spin echo, thin-slice coronal and sagittal T1 spin echo images through the pituitary fossa; axial and coronal and sagittal T1 spin echo with fat saturation through the brain. COMPARISON: No prior relevant studies are available for review at the time of this dictation. FINDINGS: Image quality: Excellent. Pituitary Gland: The pituitary gland demonstrates normal signal and bulk. On the postcontrast imaging, no masses or abnormally enhancing areas are seen. The pituitary stalk and infundibulum have an unremarkable appearance. A normal appearing pituitary bright spot is seen posteriorly on the precontrast sagittal T1-weighted images. The optic chiasm and the ventral forebrain have an unremarkable appearance. CSF Spaces: Ventricles are normal in size and shape. Basal cisterns are patent. No extra-axial fluid collections. Brain: No intracranial bleeds or mass effects. No abnormal intracranial enhancement. Lira-white matter interface is intact. Diffusion weighted images demonstrate no acute ischemic insults. Brainstem is normal. Normal intravascular flow voids are present. Skull and face: Calvarial marrow is normal in signal. Orbits appear normal. Sinuses: Sinuses and mastoids are clear. IMPRESSION: A pituitary microadenoma is not confirmed. No definite pituitary lesion can be seen on this study. Dictated by: Ángel Solorio M.D. on 09/28/2023 at 11:48 Approved by: Ángel Solorio M.D. on 09/28/2023 at 11:51
[2023-10-02 07:50] LABS: Interpretation Negative (Negative)
== END ==
PROVIDERS: Student in an Organized Health Care Education/Training Program; PCP Family Medicine; Referring Provider Family Medicine; Visit Provider Family Medicine
DX: D35.2 Benign neoplasm of pituitary gland (principal); R10.9 Unspecified abdominal pain; K30 Functional dyspepsia
CPT/HCPCS: 70553; 83013

== ENCOUNTER 2023-09-28 20:33 | Emergency (ER) | payer OTHER, SELFPAY ==
[2023-09-28 20:37] VITALS: BP 120/59; PULSE 83; RESP 16; TEMP 37.8; O2SAT 100; BMI 22.8
--- NOTE | 2023-09-28 21:05 | ED_ITS ---
HPI - Abdominal Pain General Chief Complaint: Abdominal Pain Stated Complaint: stomach ulcer/fever increasing/pain increasing Time Seen by Provider: 09/28/23 20:38 Source: patient Mode of arrival: Ambulatory History of Present Illness HPI narrative: 32yoF with no significant PMH presents for L sided abdominal pain. Patient was seen earlier today at PCP office for intermittent stomach pain that's worse after eating. Patient was told that she may have an ulcer and started on Pepcid. She also did an H pylori test, the results of which are still pending. Patient states that she took a dose of Pepcid earlier today but still had pain after eating food, and she has noticed her temperature rising today. She states that she would like to start antibiotics because she has her daughter this weekend and does not want anything bad to happen. She is also concerned because she has 2 family members that have been diagnosed with gastroesophageal cancer. Denies unintentional weight loss. Related Data Previous Rx's Medication Instructions Recorded etonogestrel 68 mg subdermal 1 implant subdermal ONCE #1 ea 08/10/20 implant (Nexplanon) albuterol sulfate 90 mcg/actuation 2 puff inhalation Q4-6H PRN 06/04/23 aerosol inhaler shortness of breath or wheezing #6.7 grams benzonatate 100 mg capsule 100 mg PO TID PRN cough #20 caps 06/04/23 doxycycline monohydrate 100 mg 100 mg PO BID #20 caps 06/06/23 capsule gentamicin 0.3 % eye drops 2 drp EYE-BOTH TID #5 mL 06/06/23 inhalational spacing device #1 ea 06/06/23 (InspiraChamber spacer) famotidine 20 mg tablet (Pepcid) 20 mg PO DAILY #30 tabs 09/28/23 pantoprazole 20 mg tablet,delayed 20 mg PO DAILY #30 tabs 09/28/23 release sucralfate 1 gram tablet (Carafate) 1 g PO TID #60 tabs 09/28/23 Allergies Allergy/AdvReac Type Severity Reaction Status Date / Time Penicillins Allergy Severe Bruises Verified 09/28/23 20:54 and unable to walk Review of Systems Review of Systems Narrative: Negative except as noted above Patient History Medical History ADD (attention deficit disorder) Vaginal delivery HSV-1 (herpes simplex virus 1) infection Anxiety Hemorrhoids History of being hospitalized Fibrocystic breast Depression (~2002) Carpal tunnel syndrome (~2016) Abnormal Pap smear of cervix (~2011) Pituitary adenoma (~2015) Surgical History History of colposcopy (~04/2014) Family History Father Hypertension Hyperlipidemia Atrial fibrillation Mother Mental health problem Grandfather Cancer Hypertension Grandmother Cancer Mental health problem Grandfather History of heart disease Hyperlipidemia Hypertension Social History marital status: unmarried,living together household members: significant other occupational status: employed current occupational exposures/hazards: Yes (wears a mask to filter dust and mould) special rosie needs: No Smoking Status: Never smoker alcohol intake: current Smoking Status: Never smoker Exam Initial Vital Signs Initial Vital Signs: Vital Signs Temperature 100.1 F H 09/28/23 20:37 Pulse Rate 83 09/28/23 20:37 Respiratory Rate 16 09/28/23 20:37 Blood Pressure 120/59 L 09/28/23 20:37 Pulse Oximetry 100 09/28/23 20:37 Oxygen Delivery Method Room Air 09/28/23 20:37 Const: Awake, alert, no acute distress, nontoxic appearing Eyes: PERRL, EOMI, conjunctiva normal ENT: Atraumatic, dentition normal, mucous membranes moist Cardiac: regular rate, regular rhythm RESP: unlabored, clear bilaterally, no wheezing GI: Atraumatic, soft, nontender, nondistended, no rebound, no guarding MSK: Atraumatic, full range of motion, pulses equal Skin: Warm, Dry, intact, no rashes Neuro: AO x3, CN II-XII grossly intact, moves all extremities Psych: affect normal, mood normal, not suicidal, not homicidal Course Course Course Narrative: Well-appearing patient with abdominal pain after eating. Patient has only had 1 dose of Pepcid and is still pending results of H pylori test. Abdomen is soft, no reproducible tenderness to palpation. Based on patient's symptoms and duration of therapy tried I explained to patient that it would be prudent to wait for the results of the H pylori test. I explained that if patient does have a gastric ulcer it would take up to several weeks for her stomach lining to heal and I encouraged her to continue her daily Pepcid. Laboratory work is reviewed, no acute abnormalities identified, liver enzymes are very very slightly outside of range of normal, nonspecific. Patient received a GI cocktail which she reported improved her symptoms. We will add Carafate and pantoprazole to patient's antacid regimen. She was counseled on dietary and lifestyle modifications for acid reduction and given a referral to General surgery to see if endoscopy is warranted. ED return precautions discussed at bedside. Patient expressed understanding of the plan and is in agreement at this time. All questions answered at the time of discharge. Orders Ordered: ED Orders 09/28/23 21:44 Covid-19 + FLU A/B + RSV - PCR Stat 09/28/23 23:01 CBC Auto Diff [Complete Blood Count AUTO DIFF] Stat CMP [Comprehensive Metabolic Panel] Stat Lipase Stat Discontinued Medications Al Hydrox/Mg Hydrox/Simethicone (Mag Hydrox/Alum/Simeth 30 Ml Udc) 30 ml PO NOW ONE Stop: 09/28/23 21:05 Last Admin: 09/28/23 21:22 Dose: 30 ml Documented By: SITA Lidocaine HCl (Lidocaine Viscous 2% 15 Ml Solution) 15 ml PO NOW ONE Stop: 09/28/23 21:05 Last Admin: 09/28/23 21:22 Dose: 15 ml Documented By: SITA Sucralfate (Sucralfate 1 Gm Tablet) 1 gm PO NOW ONE Stop: 09/28/23 21:06 Last Admin: 09/28/23 21:34 Dose: 1 gm Documented By: SITA Vital Signs Vital signs: Vital Signs - 8 hr 09/28/23 20:37 09/28/23 23:51 Temperature 100.1 F H 99.5 F Pulse Rate 83 72 Respiratory Rate 16 16 Blood Pressure 120/59 L 113/66 Pulse Oximetry 100 98 Oxygen Delivery Method Room Air Room Air MDM - Abdominal Pain Differential Diagnosis Differential diagnosis: Likely abdominal pain, gastroenteritis and other (GERD) Lab Data 09/28/23 23:01 09/28/23 23:01 Labs: Lab Results 09/28/23 09/28/23 Range/Units 21:44 23:01 WBC 8.4 (4.5-11.0) X10^3/uL RBC 4.17 (4.0-5.2) X10^6/uL Hgb 12.9 (12.0-16.0) g/dL Hct 37.5 (36-46) % MCV 89.9 (80-100) fL MCH 30.8 (26-34) PG MCHC 34.3 (30-36) % RDW 13.0 (11.6-14.8) % Plt Count 213 (150-400) X10^3/uL Neut % (Auto) 74.6 (50-75) % Lymph % (Auto) 15.2 L (25-40) % [place] % (Auto) 9.3 (3-14) % Eos % (Auto) 0.6 L (2-4) % Baso % (Auto) 0.3 (0-2) % Neut # (Auto) 6300 (1665-8152) /uL Lymph # (Auto) 1300 (8960-1487) /uL [place] # (Auto) 800 (0-900) /uL Eos # (Auto) 100 (0-450) /uL Baso # (Auto) 0 (0-100) /uL Sodium 135 L (137-145) mmol/L Potassium 3.5 (3.4-5.1) mmol/L Chloride 103 (98-107) mmol/L Carbon Dioxide 24 (22-32) mmol/L BUN 10 (7-17) mg/dL Creatinine 0.69 (0.52-1.04) mg/dL Estimated GFR > 60 (>60) mL/min BUN/Creatinine Ratio 14.5 (6-22) Glucose 104 H (70-100) mg/dL Calcium 9.1 (8.4-10.2) mg/dL Total Bilirubin 0.5 (0.2-1.3) mg/dL AST 40 H (14-36) IU/L ALT 39 H (<35) IU/L Alkaline Phosphatase 61 (38-126) U/L Total Protein 6.8 (6.3-8.2) g/dL Albumin 4.0 (3.5-5.0) g/dL Globulin 2.8 (1.7-4.1) g/dL Albumin/Globulin Ratio 1.4 (1.0-2.8) Lipase 59 (23-300) U/L SARS-CoV-2 (PCR) Negative (Negative) Influenza A (RT-PCR) Flu a negative (NEGATIVE) Influenza B (RT-PCR) Flu b negative (NEGATIVE) RSV (PCR) Negative (Negative) Discharge Plan Departure Patient Disposition: Home Clinical Impression: Abdominal pain Qualifiers: Abdominal location: generalized Qualified Code(s): R10.84 - Generalized abdominal pain Instructions: DI for Abdominal Pain-Adult Activity Restrictions/Additional Instructions: Today your liver enzymes were very slightly outside of range of normal. This is likely nonspecific, however I would follow up with your primary care physician concerning this matter. If you continued to have abdominal pain I recommend following up with Gastroenterology or General surgery to discuss possibilities of upper endoscopy. Take Pepcid and the pantoprazole daily. Decrease your acidic food intake as well to see if this helps your stomach. Prescriptions: New sucralfate [Carafate] 1 gram tablet 1 g PO TID Qty: 60 0RF pantoprazole 20 mg tablet,delayed release (DR/EC) 20 mg PO DAILY Qty: 30 0RF No Action Nexplanon 68 mg implant 1 implant subdermal ONCE Qty: 1 0RF (DME) InspiraChamber Spacer See Rx Instructions .Route Qty: 1 0RF Rx Instructions: As directed doxycycline monohydrate 100 mg capsule 100 mg PO BID Qty: 20 0RF albuterol sulfate 90 mcg/actuation HFA aerosol inhaler 2 puff inhalation Q4-6H PRN (Reason: shortness of breath or wheezing) Qty: 6.7 0RF benzonatate 100 mg capsule 100 mg PO TID PRN (Reason: cough) Qty: 20 0RF famotidine [Pepcid] 20 mg tablet 20 mg PO DAILY Qty: 30 3RF gentamicin 0.3 % drops 2 drp EYE-BOTH TID Qty: 5 0RF Rx Instructions: Instill 2 drops into affected eye(s) 3 times daily for 5-7 days Referrals: Khris Silvestre MD [Physician] - Leonarda Zazueta MD [Primary Care Provider] - Stand Alone Forms: Patient Portal/API
[2023-09-28] MEDS: MAG HYDROX/ALUM/SIMETH 30 ML UDC PO (21:22)
[2023-09-28] MEDS: LIDOCAINE VISCOUS 2% 15 ML SOLUTION PO (21:22)
[2023-09-28] MEDS: SUCRALFATE 1 GM TABLET PO (21:34)
[2023-09-28 22:41] LABS: Influenza A - CEPHEID Flu A NEGATIVE (NEGATIVE); Influenza B - CEPHEID Flu B NEGATIVE (NEGATIVE); Respiratory Syncytial Virus Negative (Negative)
[2023-09-28 22:44] LABS: COVID-19 CEPHEID 4-PLEX PCR Negative (Negative)
[2023-09-28 23:13] LABS: Add Manual Diff / Slide Review NO; Basophils Absolute Auto 0 /uL (0-100); Basophils Percent Auto 0.3 % (0-2); Eosinophils Absolute Auto 100 /uL (0-450); Eosinophils Percent Auto 0.6 % (2-4); Hematocrit 37.5 % (36-46); Hemoglobin 12.9 g/dL (12.0-16.0); Lymphocytes Absolute Auto 1300 /uL (1100-4500); Lymphocytes Percent Auto 15.2 % (25-40); Mean Corpuscular HGB Conc 34.3 % (30-36); Mean Corpuscular Hemoglobin 30.8 PG (26-34); Mean Corpuscular Volume 89.9 fL (80-100); Monocytes Absolute Auto 800 /uL (0-900); Monocytes Percent Auto 9.3 % (3-14); Neutrophils Absolute Auto 6300 /uL (1500-7000); Neutrophils Percent Auto 74.6 % (50-75); Platelet Count 213 X10^3/uL (150-400); Red Blood Cell Count 4.17 X10^6/uL (4.0-5.2); White Blood Cell Count 8.4 X10^3/uL (4.5-11.0)
[2023-09-28 23:23] LABS: Alanine Aminotransferase 39 IU/L (<35); Albumin Globulin Ratio 1.4 (1.0-2.8); Alkaline Phosphatase 61 U/L (38-126); Aspartate Aminotransferase 40 IU/L (14-36); BUN Creatinine Ratio 14.5 (6-22); Bilirubin Total 0.5 mg/dL (0.2-1.3); Blood Urea Nitrogen 10 mg/dL (7-17); Calcium 9.1 mg/dL (8.4-10.2); Carbon Dioxide 24 mmol/L (22-32); Chloride 103 mmol/L (98-107); Estimated Glomerular Filt Rate > 60 mL/min (>60); Globulin 2.8 g/dL (1.7-4.1); Glucose 104 mg/dL (70-100); HEMOLYSIS < 15 (0-50); Lipase 59 U/L (23-300); Potassium 3.5 mmol/L (3.4-5.1); Sodium 135 mmol/L (137-145); Total Protein 6.8 g/dL (6.3-8.2)
[2023-09-28 23:51] VITALS: BP 113/66; PULSE 72; RESP 16; TEMP 37.5; O2SAT 98
== END 2023-09-28 23:53 | disposition home or self-care (01) ==
PROVIDERS: Emergency Provider Emergency Medicine; PCP Family Medicine
DX: R10.84 Generalized abdominal pain (principal); Z20.822 Contact with and (suspected) exposure to COVID-19; D35.2 Benign neoplasm of pituitary gland; K30 Functional dyspepsia
CPT/HCPCS: 0241U; 36415; 70553; 80053; 83013; 83690; 85025; 99283

== ENCOUNTER → 2023-10-04 16:05 | Outpatient (CLI) | payer OTHER, SELFPAY ==
--- NOTE | 2023-10-04 16:06 | DI.US.S_ITS ---
PROCEDURE: US ABDOMEN COMPLETE INDICATIONS: abdominal pain TECHNIQUE: Real-time scanning was performed of the abdominal and retroperitoneal organs, with image documentation. COMPARISON: None. FINDINGS: Liver: Liver is normal in size and homogeneous in echotexture. Gallbladder: Nondilated. No stones or sludge. Normal gallbladder wall thickness. No pericholecystic fluid. Negative sonographic Villasenor's sign. Biliary ducts: Intrahepatic bile ducts are non-dilated. Extrahepatic bile duct caliber measures 4 mm. Normal is 6-7 mm or less in diameter, or 10 mm or less post-cholecystectomy. Pancreas: Visualized portions of the pancreas are sonographically normal. Spleen: Spleen is normal in size and homogeneous in echotexture. Measures 12.1 cm. Kidneys: Kidneys are normal in size and echotexture. Right kidney measures 12.3 cm long; left kidney measures 9.7 cm long. No hydronephrosis or nephrolithiasis. No solid masses. Aorta: Visualized aorta is normal in caliber at less than 3 cm. Iliacs: Proximal common iliac arteries are normal in caliber at less than 2.5 cm. IVC: Intrahepatic inferior vena cava is patent. IMPRESSION: Source for abdominal pain is not identified. No acute cholecystitis. No gallstones. No hydronephrosis. If clinically indicated consider CT abdomen pelvis with IV contrast for further evaluation. Dictated by: Arash Coles M.D. on 10/05/2023 at 9:08 Approved by: Arash Coles M.D. on 10/05/2023 at 9:10
== END ==
PROVIDERS: PCP Family Medicine; Referring Provider Family Medicine; Visit Provider Family Medicine
DX: K30 Functional dyspepsia (principal); R10.84 Generalized abdominal pain
CPT/HCPCS: 76700

== ENCOUNTER → 2023-10-27 12:32 | Outpatient (CLI) | payer OTHER, SELFPAY ==
[2023-10-27 13:13] LABS: Alanine Aminotransferase 22 IU/L (<35); Albumin 4.1 g/dL (3.5-5.0); Albumin Globulin Ratio 1.3 (1.0-2.8); Alkaline Phosphatase 64 U/L (38-126); Aspartate Aminotransferase 32 IU/L (14-36); Bilirubin Total 0.5 mg/dL (0.2-1.3); Blood Urea Nitrogen 13 mg/dL (7-17); Calcium 9.5 mg/dL (8.4-10.2); Carbon Dioxide 26 mmol/L (22-32); Chloride 102 mmol/L (98-107); Estimated Glomerular Filt Rate > 60 mL/min (>60); Globulin 3.1 g/dL (1.7-4.1); Glucose 85 mg/dL (70-100); HEMOLYSIS < 15 (0-50); Potassium 4.5 mmol/L (3.4-5.1); Sodium 136 mmol/L (137-145); Total Protein 7.2 g/dL (6.3-8.2)
== END ==
PROVIDERS: PCP Family Medicine; Referring Provider Family Medicine; Visit Provider Family Medicine
DX: R74.8 Abnormal levels of other serum enzymes (principal)
CPT/HCPCS: 36415; 80053

== ENCOUNTER → 2023-11-07 07:59 | Outpatient (CLI) | payer OTHER, SELFPAY ==
--- NOTE | 2023-11-07 08:00 | DI.NM.S_ITS ---
PROCEDURE: NM HIDA WITH CCK PHARMACEUTICAL: 5.2 mCi Tc-99m mebrofenin IV; 1.4 mcg CCK IV. INDICATIONS: r/o biliary dyskinesia TECHNIQUE: Following intravenous administration of Tc-99m mebrofenin, sequential anterior abdominal images were obtained. To evaluate the contractile response of the gallbladder in response to Cholecystokinin (CCK), sincalide (0.02 ?g/kg) was administered by slow intravenous infusion approximately 60 minutes after the administration of the radiopharmaceutical. Sequential imaging was continued for 30 minutes after the start of CCK infusion. Gallbladder ejection fraction was calculated. COMPARISON: None. FINDINGS: Biliary scan: There is normal tracer uptake and excretion by the liver. There is normal visualization of the intrahepatic ducts, common bile duct, and gallbladder. There is normal tracer transit into the duodenum. CCK stimulation: There is borderline abnormal contractile response of the gallbladder to CCK infusion. The calculated gallbladder ejection fraction is 34% ; normal values are above 35%. It has been shown that any patient abdominal pain after CCK administration is related to the rate of CCK injection, rather than to any underlying gallbladder disease (Clinical Nuclear Medicine 2012; 37: 63-70. Journal of Nuclear Medicine 2014; 55: 1-9). IMPRESSION: The cystic duct is patent. Transit of radiotracer into the bowel is seen. Borderline abnormal gallbladder ejection fraction, suggestive of functional gallbladder disorder. Dictated by: Henri Martinez M.D. on 11/07/2023 at 11:33 Approved by: Henri Martinez M.D. on 11/07/2023 at 11:34
== END ==
PROVIDERS: PCP Family Medicine; Referring Provider Surgery; Visit Provider Surgery
DX: R10.9 Unspecified abdominal pain (principal)
CPT/HCPCS: 78227; A9537; J2805

== ENCOUNTER → 2024-01-28 16:39 | Outpatient (CLI) | payer OTHER, SELFPAY ==
[2024-01-28 17:25] LABS: INR 1.2 (0.9-1.3); Prothrombin Time 13.3 SECONDS (9.4-12.5)
[2024-01-28 17:59] LABS: Vitamin D 25 Hydroxy (D3) 76.7 ng/mL (30.0-100.0)
== END ==
LOC: LAB 16:41
PROVIDERS: PCP Family Medicine; Referring Provider Student in an Organized Health Care Education/Training Program; Visit Provider Student in an Organized Health Care Education/Training Program
DX: R10.13 Epigastric pain (principal); R19.5 Other fecal abnormalities
CPT/HCPCS: 36415; 82306; 85610

== ENCOUNTER → 2024-02-04 12:11 | Outpatient (CLI) | payer OTHER, SELFPAY ==
[2024-02-06 20:27] LABS: Zinc 63 ug/dL (44-115)
== END ==
LOC: LAB 12:12
PROVIDERS: PCP Family Medicine; Referring Provider Student in an Organized Health Care Education/Training Program; Visit Provider Student in an Organized Health Care Education/Training Program
DX: R19.5 Other fecal abnormalities (principal)
CPT/HCPCS: 36415; 82710; 84630

== ENCOUNTER → 2024-03-05 12:04 | Outpatient (CLI) | payer OTHER, SELFPAY ==
[2024-03-05 17:52] LABS: Rheumatoid Factor < 8.6 IU/mL (<12.0)
[2024-03-11 15:48] LABS: ANA Screen, IFA Negative (.)
== END ==
PROVIDERS: PCP Family Medicine; Referring Provider Dermatology; Visit Provider Dermatology
DX: L71.8 Other rosacea (principal)
CPT/HCPCS: 36415; 86038; 86430

== ENCOUNTER → 2024-03-24 15:06 | Outpatient (CLI) | payer OTHER, SELFPAY | PROVIDERS: PCP Family Medicine; Referring Provider Family Medicine; Visit Provider Family Medicine | DX: L50.9 Urticaria, unspecified (principal) | CPT/HCPCS: 36415; 83520 ==

== ENCOUNTER → 2024-06-19 10:54 | Outpatient (CLI) | payer OTHER, SELFPAY | PROVIDERS: Family Provider Family Medicine; PCP Family Medicine; Referring Provider Family Medicine; Visit Provider Family Medicine | DX: R20.0 Anesthesia of skin (principal) | CPT/HCPCS: 95886; 95911 ==

== ENCOUNTER → 2025-03-13 10:43 | Outpatient (CLI) | payer OTHER, SELFPAY ==
--- NOTE | 2025-03-13 10:44 | DI.RAD.S_ITS ---
PROCEDURE: XR CHEST 2V INDICATIONS: sob TECHNIQUE: 2 views of the chest were acquired. COMPARISON: [facility], CR, XR CHEST 2V, 03/15/2023, 17:53. FINDINGS: Surgical changes and devices: None. Lungs and pleura: Lungs are clear. No pleural effusions or pneumothorax. Mediastinum: Mediastinal contours are normal. Heart size is normal. Bones and chest wall: No suspicious bony abnormalities. Soft tissues appear unremarkable. IMPRESSION: No acute cardiopulmonary abnormality is seen. Dictated by: Jay Lao M.D. on 03/13/2025 at 16:05 Approved by: Jay Lao M.D. on 03/13/2025 at 16:05
== END ==
PROVIDERS: Family Provider Family Medicine; PCP Family Medicine; Referring Provider Family Medicine; Visit Provider Family Medicine
DX: R06.02 Shortness of breath (principal)
CPT/HCPCS: 71046

== ENCOUNTER → 2025-03-30 09:45 | Outpatient (CLI) | payer OTHER, SELFPAY | PROVIDERS: Family Provider Family Medicine; PCP Family Medicine; Visit Provider Chiropractor | DX: N94.89 Other specified conditions associated with female genital organs and menstrual cycle (principal) | CPT/HCPCS: 87210 ==

== ENCOUNTER → 2025-10-14 13:42 | Outpatient (CLI) | payer OTHER, SELFPAY ==
--- NOTE | 2025-10-14 13:43 | DI.RAD.S_ITS ---
PROCEDURE: XR KNEE RT 3V INDICATIONS: right knee pain TECHNIQUE: 3 views of the knee were acquired. COMPARISON: None. FINDINGS: Bones: No fractures or dislocations. No suspicious bony lesions. Soft tissues: Minimal joint effusion. No suspicious soft tissue calcifications. IMPRESSION: Minimal effusion. No visualized acute fracture or dislocation. However, if clinical concern and/or pain persist, short interval imaging followup in 7-10 days is recommended, as occult injury cannot be definitively excluded. Dictated by: Ann Ledesma M.D. on 10/15/2025 at 1:31 Approved by: Ann Ledesma M.D. on 10/15/2025 at 1:31
== END ==
PROVIDERS: PCP Family Medicine; Referring Provider Family Medicine; Visit Provider Family Medicine
DX: M25.561 Pain in right knee (principal)
CPT/HCPCS: 73562